=== PATIENT | male | born 1950 | race Caucasian/White ===

== ENCOUNTER 2020-04-01 23:06 | Inpatient (IN) | payer MEDICARE, MEDICAID ==
[~2020-04-01] VITALS: Ht 167.6 cm; Wt 75.0 kg
[2020-04-01] MEDS ORDERED: SODIUM CHLORIDE 0.9% 1,000ML IVBOLUS ONE (23:30)
[2020-04-01] MEDS ORDERED: SODIUM CHLORIDE FLUSH 10ML SYR IVF ONE (23:30)
[2020-04-01] MEDS ORDERED: ONDANSETRON 2MG/ML, 2ML IVPush ONE (23:30)
[2020-04-01] MEDS ORDERED: SIMV20TA19 PO (23:40)
[2020-04-01] MEDS ORDERED: MULT-658 PO (23:40)
[2020-04-01] MEDS ORDERED: TIOT18CA INH (23:40)
[2020-04-01] MEDS ORDERED: LOSA25TA25 PO (23:40)
[2020-04-01] MEDS ORDERED: TAMS-11 PO (23:40)
[2020-04-01] MEDS ORDERED: ASCO500T8 PO (23:40)
[2020-04-01] MEDS ORDERED: GLIM2TAB7 PO (23:40)
[2020-04-01] MEDS ORDERED: CETI10TA18 PO (23:40)
[2020-04-01] MEDS ORDERED: CHOL10003 PO (23:40)
--- NOTE | 2020-04-01 23:40 | NUR ---
BIB [facility] CC OF WEAKNESS FOR A FEW DAYS, UNKNOWN LENGTH, AND INCREASING O2 NEEDS. PT UNSURE OF HOW MANY LITERS HE IS ON FOR BASELINE, EMS UNSURE WELL. PAPERWORK FROM [facility] STATES PT IS ON 2L AT NOC. PT ON 5L NC HERE SATURATION 94%. PT IS BLIND IN BOTH EYES AND USUALLY GETS AROUND IN WHEELCHAIR.
--- NOTE | 2020-04-01 23:43 | NUR ---
PER EMS REPORT, PT REQUESTS TO BE DNR.
--- NOTE | 2020-04-01 23:43 | NUR ---
MED REC AND ALLERGIES DONE AND VERIFIED
[2020-04-01 23:57] LABS: BASOPHILS % (AUTO) 1 % (0-1); EOSINOPHILS % (AUTO) 0 % (1-7); LYMPHOCYTES % (AUTO) 10 % (22-44); MEAN CORPUSCULAR HEMOGLOBIN 31.7 pg (27.5-34.5); MEAN PLATELET VOLUME 8.9 fL (7.4-10.4); MONOCYTES % (AUTO) 10 % (2-9); NEUTROPHILS % (AUTO) 79 % (42-75); PLATELET COUNT 212 x10^3/uL (130-400); RED BLOOD COUNT 4.42 x10^6/uL (4.38-5.82); RED CELL DISTRIBUTION WIDTH 13.6 % (9.4-14.8)
[2020-04-02] LABS: MD NO
[2020-04-02 00:06] LABS: ALANINE AMINOTRANSFERASE 32 U/L (12-78); ALBUMIN 3.2 g/dL (3.4-5.0); ANION GAP 4 mmol/L (5-15); CALCIUM 8.1 mg/dL (8.5-10.1); CHLORIDE 106 mmol/L (98-107); CREATININE 1.19 mg/dL (0.7-1.3)
[2020-04-02 00:10] LABS: ALKALINE PHOSPHATASE 105 U/L (45-117); BILIRUBIN,TOTAL 0.3 mg/dL (0.2-1.0); TOTAL PROTEIN 7.7 g/dL (6.4-8.2); TROPONIN I < 0.015 ng/mL (0.000-0.045)
[2020-04-02] MEDS ORDERED: AZITHROMYCIN 500 MG in SODIUM CHLORIDE 0.9% 250 ML IVPB ONE (00:30)
[2020-04-02] MEDS ORDERED: CEFTRIAXONE PMX 1GM/50ML 50 ML IVPB ONE (00:30)
--- NOTE | 2020-04-02 00:50 | NUR ---
[facility] AT BEDSIDE
[2020-04-02 00:59] LABS: MICROSCOPIC INDICATED
[2020-04-02] MEDS ORDERED: CEFTRIAXONE PMX 1GM/50ML 50 ML ONE (01:04)
--- NOTE | 2020-04-02 01:18 | NUR ---
PT RESTING, NO COMPLAINTS AT THIS TIME
[2020-04-02] MEDS ORDERED: ONDANSETRON 2MG/ML, 2ML IVPush PRN (01:30)
[2020-04-02] MEDS ORDERED: ENOXAPARIN 40 MG/0.4 ML SQ SCH (01:30)
[2020-04-02] MEDS ORDERED: ENALAPRILAT 1.25 MG/ML, 2ML IVPush PRN (01:30)
[2020-04-02] MEDS: CEFTRIAXONE PMX 1GM/50ML 50 ML IV SCH (02:12)
--- NOTE | 2020-04-02 02:25 | NUR ---
report given to Svetlana ROSE
[2020-04-02 02:56] VITALS: BP 99/57
[2020-04-02] MEDS ORDERED: ENOXAPARIN 60 MG/0.6 ML ONE (05:11)
[2020-04-02] MEDS: ENOXAPARIN 60 MG/0.6 ML SQ SCH (05:17)
[2020-04-02 07:07] VITALS: BP 112/67
[2020-04-02] MEDS: THIAMINE 100MG TABLET PO SCH (08:04)
[2020-04-02] MEDS: ACETAMINOPHEN 325 MG TABLET PO PRN (08:04)
[2020-04-02] MEDS: CHOLECALCIFEROL 5,000u TAB PO SCH (08:04)
[2020-04-02] MEDS: ZINC SULFATE 220 MG CAPSULE PO SCH (08:04)
[2020-04-02] MEDS: DEXAMETHASONE 4 MG/ML, 1ML IVPush SCH (08:05)
[2020-04-02] MEDS: ASCORBIC ACID 500 MG TABLET PO SCH ×2 (08:05→17:18)
[2020-04-02] MEDS: DOXYCYCLINE 100MG TABLET PO SCH ×2 (08:05→20:51)
[2020-04-02 13:05] VITALS: BP 106/67
[2020-04-02 20:19] VITALS: BP 120/73
[2020-04-02] MEDS: MELATONIN 5 MG TABLET PO SCH (20:51)
[2020-04-03 00:10] VITALS: BP 120/70
[2020-04-03] MEDS: CEFTRIAXONE PMX 1GM/50ML 50 ML IV SCH (01:49)
[2020-04-03 06:11] LABS: BASOPHILS % (AUTO) 0 % (0-1); EOSINOPHILS % (AUTO) 0 % (1-7); LYMPHOCYTES % (AUTO) 15 % (22-44); MEAN CORPUSCULAR HEMOGLOBIN 31.5 pg (27.5-34.5); MEAN PLATELET VOLUME 9.4 fL (7.4-10.4); MONOCYTES % (AUTO) 7 % (2-9); NEUTROPHILS % (AUTO) 78 % (42-75); PLATELET COUNT 206 x10^3/uL (130-400); RED BLOOD COUNT 4.32 x10^6/uL (4.38-5.82); RED CELL DISTRIBUTION WIDTH 13.9 % (9.4-14.8)
[2020-04-03] MEDS: ENOXAPARIN 60 MG/0.6 ML SQ SCH (06:13)
[2020-04-03 06:23] LABS: MD NO
[2020-04-03 06:25] LABS: ANION GAP 6 mmol/L (5-15); CALCIUM 8.2 mg/dL (8.5-10.1); CHLORIDE 108 mmol/L (98-107); CREATININE 1.12 mg/dL (0.7-1.3)
[2020-04-03 08:14] VITALS: BP 103/63
[2020-04-03] MEDS: ZINC SULFATE 220 MG CAPSULE PO SCH (09:40)
[2020-04-03] MEDS: CHOLECALCIFEROL 5,000u TAB PO SCH (09:40)
[2020-04-03] MEDS: DOXYCYCLINE 100MG TABLET PO SCH ×2 (09:40→21:03)
[2020-04-03] MEDS: DEXAMETHASONE 4 MG/ML, 1ML IVPush SCH (09:40)
[2020-04-03] MEDS: ASCORBIC ACID 500 MG TABLET PO SCH ×2 (09:41→17:42)
[2020-04-03] MEDS: THIAMINE 100MG TABLET PO SCH (09:41)
[2020-04-03 14:00] VITALS: BP 121/72
[2020-04-03] MEDS ORDERED: PHARMACY INSTRUCTION MC PRN (18:00)
[2020-04-03] MEDS ORDERED: REMDESIVIR 100 MG in SODIUM CHLORIDE 0.9% 250 ML IVPB SCH (18:30)
[2020-04-03] MEDS ORDERED: REMDESIVIR 200 MG in SODIUM CHLORIDE 0.9% 250 ML IVPB ONE (18:30)
[2020-04-03 19:12] VITALS: BP 116/70
[2020-04-03] MEDS: MELATONIN 5 MG TABLET PO SCH (21:03)
[2020-04-04 00:59] VITALS: BP 105/60
[2020-04-04] MEDS: CEFTRIAXONE PMX 1GM/50ML 50 ML IV SCH (01:35)
[2020-04-04] MEDS: ENOXAPARIN 40 MG/0.4 ML SQ SCH (05:53)
[2020-04-04 06:33] VITALS: BP 126/68
[2020-04-04 06:52] LABS: BASOPHILS % (AUTO) 0 % (0-1); EOSINOPHILS % (AUTO) 0 % (1-7); LYMPHOCYTES % (AUTO) 12 % (22-44); MEAN CORPUSCULAR HEMOGLOBIN 31.6 pg (27.5-34.5); MONOCYTES % (AUTO) 6 % (2-9); NEUTROPHILS % (AUTO) 82 % (42-75); PLATELET COUNT 209 x10^3/uL (130-400); RED BLOOD COUNT 4.32 x10^6/uL (4.38-5.82); RED CELL DISTRIBUTION WIDTH 13.8 % (9.4-14.8)
[2020-04-04 06:54] LABS: MD NO
[2020-04-04 06:58] LABS: ANION GAP 9 mmol/L (5-15); CALCIUM 8.9 mg/dL (8.5-10.1); CHLORIDE 111 mmol/L (98-107); CREATININE 1.22 mg/dL (0.7-1.3)
[2020-04-04] MEDS: CHOLECALCIFEROL 5,000u TAB PO SCH (09:20)
[2020-04-04] MEDS: DOXYCYCLINE 100MG TABLET PO SCH ×2 (09:20→20:47)
[2020-04-04] MEDS: ZINC SULFATE 220 MG CAPSULE PO SCH (09:20)
[2020-04-04] MEDS: THIAMINE 100MG TABLET PO SCH (09:20)
[2020-04-04] MEDS: DEXAMETHASONE 4 MG/ML, 1ML IVPush SCH (09:21)
[2020-04-04] MEDS: ASCORBIC ACID 500 MG TABLET PO SCH ×2 (09:21→18:08)
[2020-04-04 09:55] LABS: ALANINE AMINOTRANSFERASE 31 U/L (12-78)
[2020-04-04 09:57] LABS: ALKALINE PHOSPHATASE 88 U/L (45-117); BILIRUBIN,TOTAL 0.3 mg/dL (0.2-1.0); TOTAL PROTEIN 7.8 g/dL (6.4-8.2)
[2020-04-04] MEDS ORDERED: DEXTROSE 4 GM TAB.CHEW PO PRN (12:00)
[2020-04-04] MEDS ORDERED: GLUCAGON 1 MG IM PRN (12:00)
[2020-04-04] MEDS ORDERED: DEXTROSE 50%, 50ML SYRINGE IVPush PRN (12:00)
[2020-04-04 12:01] VITALS: BP 124/70
[2020-04-04] MEDS: INSULIN LISPRO 100 UNITS/ML, PEN SQ-INSULIN SCH ×2 (18:11→20:41)
[2020-04-04 19:28] VITALS: BP 119/82
[2020-04-04] MEDS ORDERED: INSULIN LISPRO 100 UNITS/ML, PEN SQ-INSULIN ONE (20:30)
[2020-04-04] MEDS: INSULIN GLARGINE 100 UNITS/ML, PEN SQ-INSULIN SCH (20:40)
[2020-04-04] MEDS: REMDESIVIR 100 MG in SODIUM CHLORIDE 0.9% 250 ML IVPB SCH (20:41)
[2020-04-04] MEDS: SODIUM CHLORIDE FLUSH 10ML SYR IVF SCH (20:43)
[2020-04-04] MEDS: MELATONIN 5 MG TABLET PO SCH (20:47)
[2020-04-04] MEDS ORDERED: INSULIN GLARGINE 100 UNITS/ML, PEN SQ-INSULIN SCH (21:00)
[2020-04-05] MEDS: CEFTRIAXONE PMX 1GM/50ML 50 ML IV SCH (00:47)
[2020-04-05 00:51] VITALS: BP 124/78
[2020-04-05 02:47] VITALS: BP 113/64
[2020-04-05 06:51] LABS: ALBUMIN 2.7 g/dL (3.4-5.0); ANION GAP 8 mmol/L (5-15); CHLORIDE 111 mmol/L (98-107)
[2020-04-05 06:57] LABS: ALANINE AMINOTRANSFERASE 32 U/L (12-78); ALKALINE PHOSPHATASE 84 U/L (45-117); BILIRUBIN,TOTAL 0.3 mg/dL (0.2-1.0); CREATININE 1.24 mg/dL (0.7-1.3); TOTAL PROTEIN 7.6 g/dL (6.4-8.2)
[2020-04-05] MEDS: ASCORBIC ACID 500 MG TABLET PO SCH ×2 (07:52→16:04)
[2020-04-05] MEDS: INSULIN LISPRO 100 UNITS/ML, PEN SQ-INSULIN SCH ×4 (07:52→20:23)
[2020-04-05] MEDS: ZINC SULFATE 220 MG CAPSULE PO SCH (07:52)
[2020-04-05] MEDS: DOXYCYCLINE 100MG TABLET PO SCH ×2 (07:52→20:22)
[2020-04-05] MEDS: THIAMINE 100MG TABLET PO SCH (07:52)
[2020-04-05] MEDS: CHOLECALCIFEROL 5,000u TAB PO SCH (07:53)
[2020-04-05] MEDS: INSULIN GLARGINE 100 UNITS/ML, PEN SQ-INSULIN SCH ×2 (07:53→20:22)
[2020-04-05] MEDS: DEXAMETHASONE 4 MG/ML, 1ML IVPush SCH (07:54)
[2020-04-05] MEDS: ENOXAPARIN 40 MG/0.4 ML SQ SCH (07:54)
[2020-04-05] MEDS: SODIUM CHLORIDE FLUSH 10ML SYR IVF SCH ×2 (07:54→20:23)
[2020-04-05 08:08] VITALS: BP 130/74
[2020-04-05 14:11] VITALS: BP 111/66
[2020-04-05 19:08] VITALS: BP 133/75
[2020-04-05] MEDS: REMDESIVIR 100 MG in SODIUM CHLORIDE 0.9% 250 ML IVPB SCH (20:21)
[2020-04-05] MEDS: MELATONIN 5 MG TABLET PO SCH (20:22)
[2020-04-06] MEDS: CEFTRIAXONE PMX 1GM/50ML 50 ML IV SCH (01:14)
[2020-04-06 01:22] VITALS: BP 124/68
[2020-04-06 05:51] LABS: BASOPHILS % (AUTO) 0 % (0-1); EOSINOPHILS % (AUTO) 0 % (1-7); LYMPHOCYTES % (AUTO) 17 % (22-44); MEAN CORPUSCULAR HEMOGLOBIN 31.5 pg (27.5-34.5); MEAN CORPUSCULAR HGB CONC 33.9 g/dL (33.2-36.2); MEAN PLATELET VOLUME 9.1 fL (7.4-10.4); MONOCYTES % (AUTO) 9 % (2-9); NEUTROPHILS % (AUTO) 74 % (42-75); PLATELET COUNT 233 x10^3/uL (130-400); RED CELL DISTRIBUTION WIDTH 13.9 % (9.4-14.8)
[2020-04-06 06:05] LABS: ALBUMIN 2.7 g/dL (3.4-5.0); ANION GAP 8 mmol/L (5-15); CALCIUM 8.7 mg/dL (8.5-10.1); CHLORIDE 108 mmol/L (98-107)
[2020-04-06 06:08] LABS: ALANINE AMINOTRANSFERASE 35 U/L (12-78); ALKALINE PHOSPHATASE 85 U/L (45-117); BILIRUBIN,TOTAL 0.4 mg/dL (0.2-1.0); CREATININE 1.07 mg/dL (0.7-1.3); TOTAL PROTEIN 7.5 g/dL (6.4-8.2)
[2020-04-06 06:18] LABS: MD NO
[2020-04-06] MEDS ORDERED: FUROSEMIDE 40 MG/4 ML IV ONE (06:30)
[2020-04-06 08:16] VITALS: BP 130/72
[2020-04-06] MEDS: DOXYCYCLINE 100MG TABLET PO SCH ×2 (09:11→20:50)
[2020-04-06] MEDS: ZINC SULFATE 220 MG CAPSULE PO SCH (09:11)
[2020-04-06] MEDS: ASCORBIC ACID 500 MG TABLET PO SCH ×2 (09:11→16:40)
[2020-04-06] MEDS: THIAMINE 100MG TABLET PO SCH (09:11)
[2020-04-06] MEDS: CHOLECALCIFEROL 5,000u TAB PO SCH (09:11)
[2020-04-06] MEDS: DEXAMETHASONE 4 MG/ML, 1ML IVPush SCH (09:12)
[2020-04-06] MEDS: ACETAMINOPHEN 325 MG TABLET PO PRN (09:18)
[2020-04-06] MEDS: SODIUM CHLORIDE FLUSH 10ML SYR IVF SCH ×2 (09:19→20:50)
[2020-04-06] MEDS: INSULIN LISPRO 100 UNITS/ML, PEN SQ-INSULIN SCH ×4 (09:19→20:51)
[2020-04-06] MEDS: ENOXAPARIN 40 MG/0.4 ML SQ SCH (09:19)
[2020-04-06] MEDS: INSULIN GLARGINE 100 UNITS/ML, PEN SQ-INSULIN SCH ×2 (09:20→20:50)
[2020-04-06 12:10] VITALS: BP 135/74
[2020-04-06] MEDS: MELATONIN 5 MG TABLET PO SCH (20:50)
[2020-04-06] MEDS: REMDESIVIR 100 MG in SODIUM CHLORIDE 0.9% 250 ML IVPB SCH (20:50)
[2020-04-06 21:08] VITALS: BP 128/75
[2020-04-07] MEDS: CEFTRIAXONE PMX 1GM/50ML 50 ML IV SCH (00:41)
[2020-04-07 00:50] VITALS: BP 131/73
[2020-04-07 06:01] LABS: BASOPHILS % (AUTO) 0 % (0-1); EOSINOPHILS % (AUTO) 0 % (1-7); LYMPHOCYTES % (AUTO) 20 % (22-44); MEAN CORPUSCULAR HEMOGLOBIN 31.9 pg (27.5-34.5); MEAN CORPUSCULAR HGB CONC 34.6 g/dL (33.2-36.2); MEAN PLATELET VOLUME 9.5 fL (7.4-10.4); MONOCYTES % (AUTO) 13 % (2-9); NEUTROPHILS % (AUTO) 67 % (42-75); PLATELET COUNT 268 x10^3/uL (130-400); RED BLOOD COUNT 4.67 x10^6/uL (4.38-5.82); RED CELL DISTRIBUTION WIDTH 13.8 % (9.4-14.8)
[2020-04-07 06:08] LABS: ALANINE AMINOTRANSFERASE 36 U/L (12-78); ALBUMIN 2.7 g/dL (3.4-5.0); ANION GAP 8 mmol/L (5-15); CALCIUM 8.7 mg/dL (8.5-10.1); CHLORIDE 107 mmol/L (98-107); CREATININE 1.02 mg/dL (0.7-1.3)
[2020-04-07 06:10] LABS: ALKALINE PHOSPHATASE 92 U/L (45-117); BILIRUBIN,TOTAL 0.4 mg/dL (0.2-1.0); TOTAL PROTEIN 7.6 g/dL (6.4-8.2)
[2020-04-07 06:43] LABS: MD SCAN
[2020-04-07 08:25] VITALS: BP 116/73
[2020-04-07] MEDS: CHOLECALCIFEROL 5,000u TAB PO SCH (08:37)
[2020-04-07] MEDS: THIAMINE 100MG TABLET PO SCH (08:37)
[2020-04-07] MEDS: DOXYCYCLINE 100MG TABLET PO SCH ×2 (08:37→20:24)
[2020-04-07] MEDS: ASCORBIC ACID 500 MG TABLET PO SCH ×2 (08:37→16:09)
[2020-04-07] MEDS: ZINC SULFATE 220 MG CAPSULE PO SCH (08:37)
[2020-04-07] MEDS: DEXAMETHASONE 4 MG/ML, 1ML IVPush SCH (08:38)
[2020-04-07] MEDS: FUROSEMIDE 40 MG/4 ML IV SCH (08:38)
[2020-04-07] MEDS: ENOXAPARIN 40 MG/0.4 ML SQ SCH (08:38)
[2020-04-07] MEDS: INSULIN GLARGINE 100 UNITS/ML, PEN SQ-INSULIN SCH ×2 (08:39→20:23)
[2020-04-07] MEDS: INSULIN LISPRO 100 UNITS/ML, PEN SQ-INSULIN SCH ×4 (08:39→20:24)
[2020-04-07] MEDS: SODIUM CHLORIDE FLUSH 10ML SYR IVF SCH ×2 (08:40→20:24)
[2020-04-07 12:39] VITALS: BP 156/78
[2020-04-07] MEDS: REMDESIVIR 100 MG in SODIUM CHLORIDE 0.9% 250 ML IVPB SCH (20:24)
[2020-04-07] MEDS: MELATONIN 5 MG TABLET PO SCH (20:24)
[2020-04-07 20:31] VITALS: BP 138/70
[2020-04-08] MEDS: CEFTRIAXONE PMX 1GM/50ML 50 ML IV SCH (01:38)
[2020-04-08 01:57] VITALS: BP 133/73
[2020-04-08 06:28] LABS: ALBUMIN 2.6 g/dL (3.4-5.0); ANION GAP 7 mmol/L (5-15); CALCIUM 8.8 mg/dL (8.5-10.1); CHLORIDE 108 mmol/L (98-107)
[2020-04-08 06:29] LABS: BASOPHILS % (AUTO) 0 % (0-1); EOSINOPHILS % (AUTO) 0 % (1-7); LYMPHOCYTES % (AUTO) 18 % (22-44); MEAN CORPUSCULAR HEMOGLOBIN 31.6 pg (27.5-34.5); MEAN CORPUSCULAR HGB CONC 34.1 g/dL (33.2-36.2); MEAN PLATELET VOLUME 9.4 fL (7.4-10.4); MONOCYTES % (AUTO) 12 % (2-9); NEUTROPHILS % (AUTO) 70 % (42-75); PLATELET COUNT 294 x10^3/uL (130-400); RED BLOOD COUNT 4.81 x10^6/uL (4.38-5.82); RED CELL DISTRIBUTION WIDTH 13.7 % (9.4-14.8)
[2020-04-08 06:32] LABS: ALANINE AMINOTRANSFERASE 37 U/L (12-78); ALKALINE PHOSPHATASE 93 U/L (45-117); BILIRUBIN,TOTAL 0.4 mg/dL (0.2-1.0); CREATININE 0.98 mg/dL (0.7-1.3); MD NO; TOTAL PROTEIN 7.5 g/dL (6.4-8.2)
[2020-04-08 07:17] VITALS: BP 146/80
[2020-04-08] MEDS: INSULIN GLARGINE 100 UNITS/ML, PEN SQ-INSULIN SCH ×2 (08:06→21:38)
[2020-04-08] MEDS: INSULIN LISPRO 100 UNITS/ML, PEN SQ-INSULIN SCH ×5 (08:06→21:39)
[2020-04-08] MEDS: DOXYCYCLINE 100MG TABLET PO SCH ×2 (08:07→21:34)
[2020-04-08] MEDS: DEXAMETHASONE 4 MG/ML, 1ML IVPush SCH (08:07)
[2020-04-08] MEDS: ZINC SULFATE 220 MG CAPSULE PO SCH (08:07)
[2020-04-08] MEDS: THIAMINE 100MG TABLET PO SCH (08:07)
[2020-04-08] MEDS: ENOXAPARIN 40 MG/0.4 ML SQ SCH (08:07)
[2020-04-08] MEDS: FUROSEMIDE 40 MG/4 ML IV SCH (08:07)
[2020-04-08] MEDS: CHOLECALCIFEROL 5,000u TAB PO SCH (08:07)
[2020-04-08] MEDS: ASCORBIC ACID 500 MG TABLET PO SCH ×2 (08:07→16:41)
[2020-04-08] MEDS: SODIUM CHLORIDE FLUSH 10ML SYR IVF SCH ×2 (08:08→21:39)
[2020-04-08 12:51] VITALS: BP 134/79
[2020-04-08 18:34] VITALS: BP 126/73
[2020-04-08] MEDS: MELATONIN 5 MG TABLET PO SCH (21:34)
[2020-04-09] MEDS: CEFTRIAXONE PMX 1GM/50ML 50 ML IV SCH (01:34)
[2020-04-09 01:36] VITALS: BP 116/75
[2020-04-09 07:28] VITALS: BP 122/84
[2020-04-09] MEDS: ENOXAPARIN 40 MG/0.4 ML SQ SCH (08:00)
[2020-04-09] MEDS: DOXYCYCLINE 100MG TABLET PO SCH ×2 (08:45→20:53)
[2020-04-09] MEDS: DEXAMETHASONE 4 MG/ML, 1ML IVPush SCH (08:46)
[2020-04-09] MEDS: FUROSEMIDE 40 MG/4 ML IV SCH (08:46)
[2020-04-09] MEDS: ASCORBIC ACID 500 MG TABLET PO SCH ×2 (08:47→16:10)
[2020-04-09] MEDS: INSULIN LISPRO 100 UNITS/ML, PEN SQ-INSULIN SCH ×4 (08:47→20:55)
[2020-04-09] MEDS: SODIUM CHLORIDE FLUSH 10ML SYR IVF SCH ×2 (08:48→20:54)
[2020-04-09] MEDS: ZINC SULFATE 220 MG CAPSULE PO SCH (08:48)
[2020-04-09] MEDS: CHOLECALCIFEROL 5,000u TAB PO SCH (08:48)
[2020-04-09] MEDS: THIAMINE 100MG TABLET PO SCH (08:48)
[2020-04-09] MEDS: INSULIN GLARGINE 100 UNITS/ML, PEN SQ-INSULIN SCH ×2 (08:48→20:56)
[2020-04-09 09:52] LABS: BASOPHILS % (AUTO) 1 % (0-1); EOSINOPHILS % (AUTO) 0 % (1-7); LYMPHOCYTES % (AUTO) 15 % (22-44); MEAN CORPUSCULAR HEMOGLOBIN 31.8 pg (27.5-34.5); MEAN PLATELET VOLUME 9.3 fL (7.4-10.4); MONOCYTES % (AUTO) 7 % (2-9); NEUTROPHILS % (AUTO) 77 % (42-75); PLATELET COUNT 385 x10^3/uL (130-400); RED BLOOD COUNT 4.99 x10^6/uL (4.38-5.82); RED CELL DISTRIBUTION WIDTH 13.9 % (9.4-14.8)
[2020-04-09 10:02] LABS: ANION GAP 8 mmol/L (5-15); CALCIUM 9.7 mg/dL (8.5-10.1); CHLORIDE 108 mmol/L (98-107)
[2020-04-09 10:03] LABS: CREATININE 1.23 mg/dL (0.7-1.3)
[2020-04-09 10:38] LABS: MD SCAN
[2020-04-09 13:21] VITALS: BP 107/67
[2020-04-09 19:43] VITALS: BP 116/65
[2020-04-09] MEDS: MELATONIN 5 MG TABLET PO SCH (20:54)
[2020-04-10] MEDS: CEFTRIAXONE PMX 1GM/50ML 50 ML IV SCH (01:27)
[2020-04-10 01:30] VITALS: BP 101/60
[2020-04-10 05:34] LABS: BASOPHILS % (AUTO) 1 % (0-1); EOSINOPHILS % (AUTO) 1 % (1-7); LYMPHOCYTES % (AUTO) 15 % (22-44); MEAN CORPUSCULAR HEMOGLOBIN 31.6 pg (27.5-34.5); MEAN PLATELET VOLUME 9.2 fL (7.4-10.4); MONOCYTES % (AUTO) 6 % (2-9); NEUTROPHILS % (AUTO) 78 % (42-75); PLATELET COUNT 365 x10^3/uL (130-400); RED BLOOD COUNT 4.64 x10^6/uL (4.38-5.82); RED CELL DISTRIBUTION WIDTH 13.8 % (9.4-14.8)
[2020-04-10 05:46] LABS: ANION GAP 8 mmol/L (5-15); CALCIUM 8.8 mg/dL (8.5-10.1); CHLORIDE 107 mmol/L (98-107)
[2020-04-10 05:47] LABS: CREATININE 1.04 mg/dL (0.7-1.3)
[2020-04-10 05:48] LABS: D-DIMER 0.31 ug/mlFEU (0.00-0.52)
[2020-04-10 06:04] LABS: MD SCAN
[2020-04-10 07:45] VITALS: BP 95/51
[2020-04-10] MEDS: DEXAMETHASONE 4 MG/ML, 1ML IVPush SCH (10:17)
[2020-04-10] MEDS: CHOLECALCIFEROL 5,000u TAB PO SCH (10:18)
[2020-04-10] MEDS: FUROSEMIDE 40 MG/4 ML IV SCH (10:18)
[2020-04-10] MEDS: ZINC SULFATE 220 MG CAPSULE PO SCH (10:18)
[2020-04-10] MEDS: ASCORBIC ACID 500 MG TABLET PO SCH ×2 (10:18→17:31)
[2020-04-10] MEDS: DOXYCYCLINE 100MG TABLET PO SCH ×2 (10:18→21:08)
[2020-04-10] MEDS: THIAMINE 100MG TABLET PO SCH (10:18)
[2020-04-10] MEDS: INSULIN LISPRO 100 UNITS/ML, PEN SQ-INSULIN SCH ×4 (10:19→21:14)
[2020-04-10] MEDS: INSULIN GLARGINE 100 UNITS/ML, PEN SQ-INSULIN SCH ×2 (10:21→21:13)
[2020-04-10] MEDS: SODIUM CHLORIDE FLUSH 10ML SYR IVF SCH ×2 (10:25→21:08)
[2020-04-10] MEDS: ENOXAPARIN 40 MG/0.4 ML SQ SCH (10:39)
[2020-04-10 13:46] VITALS: BP 108/65
[2020-04-10 20:30] VITALS: BP 108/56
[2020-04-10] MEDS: MELATONIN 5 MG TABLET PO SCH (21:08)
[2020-04-11] MEDS: CEFTRIAXONE PMX 1GM/50ML 50 ML IV SCH (01:26)
[2020-04-11 01:30] VITALS: BP 102/58
[2020-04-11] MEDS: SODIUM CHLORIDE FLUSH 10ML SYR IVF SCH ×2 (07:38→21:30)
[2020-04-11] MEDS: INSULIN LISPRO 100 UNITS/ML, PEN SQ-INSULIN SCH ×4 (08:26→21:29)
[2020-04-11] MEDS: INSULIN GLARGINE 100 UNITS/ML, PEN SQ-INSULIN SCH ×2 (08:28→21:29)
[2020-04-11] MEDS: THIAMINE 100MG TABLET PO SCH (08:29)
[2020-04-11] MEDS: ASCORBIC ACID 500 MG TABLET PO SCH ×2 (08:29→16:48)
[2020-04-11] MEDS: FUROSEMIDE 40 MG/4 ML IV SCH (08:29)
[2020-04-11] MEDS: DEXAMETHASONE 4 MG/ML, 1ML IVPush SCH (08:29)
[2020-04-11] MEDS: CHOLECALCIFEROL 5,000u TAB PO SCH (08:30)
[2020-04-11] MEDS: ENOXAPARIN 40 MG/0.4 ML SQ SCH (08:30)
[2020-04-11] MEDS: DOXYCYCLINE 100MG TABLET PO SCH ×2 (08:30→21:29)
[2020-04-11] MEDS: ZINC SULFATE 220 MG CAPSULE PO SCH (08:30)
[2020-04-11 08:34] VITALS: BP 132/72
[2020-04-11 14:43] VITALS: BP 126/68
[2020-04-11 18:53] VITALS: BP 117/67
[2020-04-11] MEDS: MELATONIN 5 MG TABLET PO SCH (21:29)
[2020-04-12 00:38] VITALS: BP 116/66
[2020-04-12] MEDS: CEFTRIAXONE PMX 1GM/50ML 50 ML IV SCH (01:28)
[2020-04-12 06:55] VITALS: BP 119/72
[2020-04-12] MEDS: INSULIN LISPRO 100 UNITS/ML, PEN SQ-INSULIN SCH ×4 (07:00→21:39)
[2020-04-12] MEDS: SODIUM CHLORIDE FLUSH 10ML SYR IVF SCH ×2 (07:14→21:39)
[2020-04-12] MEDS ORDERED: DEXAMETHASONE 4 MG/ML, 5ML ONE (07:39)
[2020-04-12] MEDS: THIAMINE 100MG TABLET PO SCH (07:49)
[2020-04-12] MEDS: ASCORBIC ACID 500 MG TABLET PO SCH ×2 (07:49→16:28)
[2020-04-12] MEDS: ZINC SULFATE 220 MG CAPSULE PO SCH (07:50)
[2020-04-12] MEDS: FUROSEMIDE 40 MG/4 ML IV SCH (07:50)
[2020-04-12] MEDS: DEXAMETHASONE 4 MG/ML, 1ML IVPush SCH (07:50)
[2020-04-12] MEDS: DOXYCYCLINE 100MG TABLET PO SCH (07:51)
[2020-04-12] MEDS: CHOLECALCIFEROL 5,000u TAB PO SCH (07:51)
[2020-04-12] MEDS: ENOXAPARIN 40 MG/0.4 ML SQ SCH (07:51)
[2020-04-12] MEDS: INSULIN GLARGINE 100 UNITS/ML, PEN SQ-INSULIN SCH ×2 (07:51→21:39)
[2020-04-12 12:52] VITALS: BP 106/64
[2020-04-12 19:50] VITALS: BP 109/68
[2020-04-12] MEDS: MELATONIN 5 MG TABLET PO SCH (21:39)
[2020-04-13 01:34] VITALS: BP 111/72
[2020-04-13] MEDS: INSULIN LISPRO 100 UNITS/ML, PEN SQ-INSULIN SCH ×4 (07:00→20:45)
[2020-04-13 07:50] VITALS: BP 120/71
[2020-04-13] MEDS: INSULIN GLARGINE 100 UNITS/ML, PEN SQ-INSULIN SCH ×2 (08:04→20:46)
[2020-04-13] MEDS: ASCORBIC ACID 500 MG TABLET PO SCH ×2 (10:08→17:15)
[2020-04-13] MEDS: ENOXAPARIN 40 MG/0.4 ML SQ SCH (10:10)
[2020-04-13] MEDS: SODIUM CHLORIDE FLUSH 10ML SYR IVF SCH ×2 (10:11→20:46)
[2020-04-13] MEDS: ZINC SULFATE 220 MG CAPSULE PO SCH (10:11)
[2020-04-13] MEDS: CHOLECALCIFEROL 5,000u TAB PO SCH (10:11)
[2020-04-13] MEDS: THIAMINE 100MG TABLET PO SCH (10:11)
[2020-04-13] MEDS: FUROSEMIDE 40 MG/4 ML IV SCH (10:11)
[2020-04-13] MEDS: DEXAMETHASONE 4 MG/ML, 1ML IVPush SCH (10:11)
[2020-04-13 13:44] VITALS: BP 101/57
[2020-04-13 18:32] VITALS: BP 107/57
[2020-04-13] MEDS: MELATONIN 5 MG TABLET PO SCH (20:44)
[2020-04-14 01:09] VITALS: BP 121/69
[2020-04-14 06:34] LABS: CREATININE 1.06 mg/dL (0.7-1.3)
[2020-04-14] MEDS: INSULIN LISPRO 100 UNITS/ML, PEN SQ-INSULIN SCH ×4 (07:00→19:50)
[2020-04-14 07:30] VITALS: BP 127/74
[2020-04-14] MEDS: ZINC SULFATE 220 MG CAPSULE PO SCH (08:42)
[2020-04-14] MEDS: THIAMINE 100MG TABLET PO SCH (08:42)
[2020-04-14] MEDS: CHOLECALCIFEROL 5,000u TAB PO SCH (08:42)
[2020-04-14] MEDS: FUROSEMIDE 40 MG/4 ML IV SCH (08:42)
[2020-04-14] MEDS: ASCORBIC ACID 500 MG TABLET PO SCH ×2 (08:42→16:45)
[2020-04-14] MEDS: DEXAMETHASONE 4 MG/ML, 1ML IVPush SCH (08:42)
[2020-04-14] MEDS: SODIUM CHLORIDE FLUSH 10ML SYR IVF SCH ×2 (08:43→22:46)
[2020-04-14] MEDS: INSULIN GLARGINE 100 UNITS/ML, PEN SQ-INSULIN SCH ×2 (08:43→19:51)
[2020-04-14] MEDS: ENOXAPARIN 40 MG/0.4 ML SQ SCH (08:43)
[2020-04-14 13:52] VITALS: BP 116/69
[2020-04-14 18:21] VITALS: BP 118/63
[2020-04-14] MEDS: MELATONIN 5 MG TABLET PO SCH (22:45)
[2020-04-15 00:50] VITALS: BP 134/71
[2020-04-15] MEDS: INSULIN LISPRO 100 UNITS/ML, PEN SQ-INSULIN SCH ×4 (07:00→22:06)
[2020-04-15] MEDS: ENOXAPARIN 40 MG/0.4 ML SQ SCH (08:00)
[2020-04-15 08:07] VITALS: BP 137/80
[2020-04-15] MEDS: FUROSEMIDE 40 MG/4 ML IV SCH (09:02)
[2020-04-15] MEDS: DEXAMETHASONE 4 MG/ML, 1ML IVPush SCH (09:02)
[2020-04-15] MEDS: ASCORBIC ACID 500 MG TABLET PO SCH ×2 (09:02→16:28)
[2020-04-15] MEDS: THIAMINE 100MG TABLET PO SCH (09:02)
[2020-04-15] MEDS: ZINC SULFATE 220 MG CAPSULE PO SCH (09:02)
[2020-04-15] MEDS: CHOLECALCIFEROL 5,000u TAB PO SCH (09:02)
[2020-04-15] MEDS: SODIUM CHLORIDE FLUSH 10ML SYR IVF SCH ×2 (09:03→21:00)
[2020-04-15] MEDS: INSULIN GLARGINE 100 UNITS/ML, PEN SQ-INSULIN SCH ×2 (09:04→22:06)
[2020-04-15 12:39] VITALS: BP 128/67
[2020-04-15 19:29] VITALS: BP 129/72
[2020-04-15] MEDS: MELATONIN 5 MG TABLET PO SCH (22:05)
[2020-04-16 02:55] VITALS: BP 124/73
[2020-04-16] MEDS: INSULIN LISPRO 100 UNITS/ML, PEN SQ-INSULIN SCH ×4 (07:00→20:46)
[2020-04-16 07:25] VITALS: BP 125/78
[2020-04-16] MEDS: THIAMINE 100MG TABLET PO SCH (07:50)
[2020-04-16] MEDS: ZINC SULFATE 220 MG CAPSULE PO SCH (07:50)
[2020-04-16] MEDS: ASCORBIC ACID 500 MG TABLET PO SCH ×2 (07:50→16:42)
[2020-04-16] MEDS: CHOLECALCIFEROL 5,000u TAB PO SCH (07:51)
[2020-04-16] MEDS: ENOXAPARIN 40 MG/0.4 ML SQ SCH (07:51)
[2020-04-16] MEDS: FUROSEMIDE 40 MG/4 ML IV SCH (07:51)
[2020-04-16] MEDS: DEXAMETHASONE 4 MG/ML, 1ML IVPush SCH (07:51)
[2020-04-16] MEDS: SODIUM CHLORIDE FLUSH 10ML SYR IVF SCH ×2 (07:51→20:47)
[2020-04-16] MEDS: INSULIN GLARGINE 100 UNITS/ML, PEN SQ-INSULIN SCH ×2 (07:52→20:47)
[2020-04-16 12:48] VITALS: BP 115/71
[2020-04-16 19:12] VITALS: BP 113/66
[2020-04-16] MEDS: MELATONIN 5 MG TABLET PO SCH (20:46)
[2020-04-17 03:11] VITALS: BP 119/66
[2020-04-17 06:58] VITALS: BP 110/70
[2020-04-17] MEDS: INSULIN LISPRO 100 UNITS/ML, PEN SQ-INSULIN SCH ×4 (07:00→21:08)
[2020-04-17] MEDS: ENOXAPARIN 40 MG/0.4 ML SQ SCH (08:00)
[2020-04-17] MEDS: ZINC SULFATE 220 MG CAPSULE PO SCH (08:01)
[2020-04-17] MEDS: DEXAMETHASONE 4 MG/ML, 1ML IVPush SCH (08:01)
[2020-04-17] MEDS: THIAMINE 100MG TABLET PO SCH (08:01)
[2020-04-17] MEDS: ASCORBIC ACID 500 MG TABLET PO SCH ×2 (08:01→15:57)
[2020-04-17] MEDS: CHOLECALCIFEROL 5,000u TAB PO SCH (08:01)
[2020-04-17] MEDS: FUROSEMIDE 40 MG/4 ML IV SCH (08:01)
[2020-04-17] MEDS: INSULIN GLARGINE 100 UNITS/ML, PEN SQ-INSULIN SCH ×2 (08:04→21:07)
[2020-04-17] MEDS: SODIUM CHLORIDE FLUSH 10ML SYR IVF SCH ×2 (08:12→21:07)
[2020-04-17 12:09] VITALS: BP 136/79
[2020-04-17 20:44] VITALS: BP 128/78
[2020-04-17] MEDS: MELATONIN 5 MG TABLET PO SCH (21:07)
[2020-04-18 01:34] VITALS: BP 119/56
[2020-04-18] MEDS: INSULIN LISPRO 100 UNITS/ML, PEN SQ-INSULIN SCH ×4 (07:00→20:48)
[2020-04-18 07:17] VITALS: BP 109/66
[2020-04-18] MEDS: CHOLECALCIFEROL 5,000u TAB PO SCH (07:50)
[2020-04-18] MEDS: ASCORBIC ACID 500 MG TABLET PO SCH ×2 (07:50→16:08)
[2020-04-18] MEDS: ZINC SULFATE 220 MG CAPSULE PO SCH (07:50)
[2020-04-18] MEDS: THIAMINE 100MG TABLET PO SCH (07:50)
[2020-04-18] MEDS: DEXAMETHASONE 4 MG/ML, 1ML IVPush SCH (07:51)
[2020-04-18] MEDS: ENOXAPARIN 40 MG/0.4 ML SQ SCH (07:51)
[2020-04-18] MEDS: FUROSEMIDE 40 MG/4 ML IV SCH (07:51)
[2020-04-18] MEDS: SODIUM CHLORIDE FLUSH 10ML SYR IVF SCH ×2 (07:51→20:48)
[2020-04-18] MEDS: INSULIN GLARGINE 100 UNITS/ML, PEN SQ-INSULIN SCH ×2 (07:52→20:48)
[2020-04-18 13:47] VITALS: BP 126/71
[2020-04-18] MEDS: AMPICILLIN/SULBACTAM 3 GM in SODIUM CHLORIDE 0.9% 100 ML IV SCH ×2 (18:00→23:36)
[2020-04-18] MEDS: MELATONIN 5 MG TABLET PO SCH (20:47)
[2020-04-18 21:01] VITALS: BP 131/80
[2020-04-19 00:10] VITALS: BP 107/69
[2020-04-19 03:04] VITALS: BP 110/70
[2020-04-19 03:43] LABS: BASOPHILS % (AUTO) 1 % (0-1); EOSINOPHILS % (AUTO) 1 % (1-7); LYMPHOCYTES % (AUTO) 18 % (22-44); MEAN CORPUSCULAR HEMOGLOBIN 31.3 pg (27.5-34.5); MEAN PLATELET VOLUME 9.4 fL (7.4-10.4); MONOCYTES % (AUTO) 10 % (2-9); NEUTROPHILS % (AUTO) 71 % (42-75); PLATELET COUNT 351 x10^3/uL (130-400); RED BLOOD COUNT 4.59 x10^6/uL (4.38-5.82); RED CELL DISTRIBUTION WIDTH 13.9 % (9.4-14.8)
[2020-04-19 03:47] LABS: MD NO
[2020-04-19 03:54] LABS: ALBUMIN 2.6 g/dL (3.4-5.0); ANION GAP 2 mmol/L (5-15); CALCIUM 8.7 mg/dL (8.5-10.1); CHLORIDE 109 mmol/L (98-107)
[2020-04-19 03:59] LABS: ALANINE AMINOTRANSFERASE 35 U/L (12-78); ALKALINE PHOSPHATASE 76 U/L (45-117); BILIRUBIN,TOTAL 0.8 mg/dL (0.2-1.0); TOTAL PROTEIN 6.8 g/dL (6.4-8.2)
[2020-04-19] MEDS: AMPICILLIN/SULBACTAM 3 GM in SODIUM CHLORIDE 0.9% 100 ML IV SCH ×3 (05:46→18:04)
[2020-04-19] MEDS: INSULIN LISPRO 100 UNITS/ML, PEN SQ-INSULIN SCH ×4 (07:00→21:17)
[2020-04-19 07:37] VITALS: BP 129/74
[2020-04-19] MEDS: INSULIN GLARGINE 100 UNITS/ML, PEN SQ-INSULIN SCH ×2 (09:00→21:16)
[2020-04-19] MEDS: CHOLECALCIFEROL 5,000u TAB PO SCH (09:48)
[2020-04-19] MEDS: ZINC SULFATE 220 MG CAPSULE PO SCH (09:48)
[2020-04-19] MEDS: FLUTICASONE/VILANTEROL 100-25MCG/INH INH SCH (09:48)
[2020-04-19] MEDS: THIAMINE 100MG TABLET PO SCH (09:48)
[2020-04-19] MEDS: ENOXAPARIN 40 MG/0.4 ML SQ SCH (09:49)
[2020-04-19] MEDS: FUROSEMIDE 40 MG/4 ML IV SCH (09:49)
[2020-04-19] MEDS: ASCORBIC ACID 500 MG TABLET PO SCH ×2 (09:49→18:04)
[2020-04-19] MEDS: SODIUM CHLORIDE FLUSH 10ML SYR IVF SCH ×2 (09:50→21:16)
[2020-04-19] MEDS: DEXAMETHASONE 4 MG/ML, 1ML IVPush SCH (09:50)
[2020-04-19 13:50] VITALS: BP 117/72
[2020-04-19 20:49] VITALS: BP 119/69
[2020-04-19] MEDS: MELATONIN 5 MG TABLET PO SCH (21:16)
[2020-04-20] MEDS: AMPICILLIN/SULBACTAM 3 GM in SODIUM CHLORIDE 0.9% 100 ML IV SCH ×4 (00:12→17:44)
[2020-04-20 01:22] VITALS: BP 135/72
[2020-04-20] MEDS: INSULIN LISPRO 100 UNITS/ML, PEN SQ-INSULIN SCH ×4 (07:00→20:24)
[2020-04-20 07:57] VITALS: BP 129/69
[2020-04-20] MEDS: ZINC SULFATE 220 MG CAPSULE PO SCH (08:48)
[2020-04-20] MEDS: ASCORBIC ACID 500 MG TABLET PO SCH ×2 (08:49→16:02)
[2020-04-20] MEDS: DEXAMETHASONE 4 MG/ML, 1ML IVPush SCH (08:49)
[2020-04-20] MEDS: THIAMINE 100MG TABLET PO SCH (08:49)
[2020-04-20] MEDS: CHOLECALCIFEROL 5,000u TAB PO SCH (08:49)
[2020-04-20] MEDS: SODIUM CHLORIDE FLUSH 10ML SYR IVF SCH ×2 (08:49→20:25)
[2020-04-20] MEDS: INSULIN GLARGINE 100 UNITS/ML, PEN SQ-INSULIN SCH ×2 (08:50→20:25)
[2020-04-20] MEDS: FUROSEMIDE 40 MG/4 ML IV SCH (08:50)
[2020-04-20] MEDS: ENOXAPARIN 40 MG/0.4 ML SQ SCH (08:51)
[2020-04-20] MEDS: FLUTICASONE/VILANTEROL 100-25MCG/INH INH SCH (09:06)
[2020-04-20 13:44] VITALS: BP 112/65
[2020-04-20 19:28] VITALS: BP 121/66
[2020-04-20] MEDS: MELATONIN 5 MG TABLET PO SCH (20:25)
[2020-04-21] MEDS: AMPICILLIN/SULBACTAM 3 GM in SODIUM CHLORIDE 0.9% 100 ML IV SCH ×4 (00:02→17:12)
[2020-04-21 01:15] VITALS: BP 130/74
[2020-04-21] MEDS: INSULIN LISPRO 100 UNITS/ML, PEN SQ-INSULIN SCH ×4 (07:00→21:10)
[2020-04-21 07:43] VITALS: BP 125/69
[2020-04-21] MEDS: FUROSEMIDE 40 MG/4 ML IV SCH (08:39)
[2020-04-21] MEDS: SODIUM CHLORIDE FLUSH 10ML SYR IVF SCH ×2 (08:39→21:07)
[2020-04-21] MEDS: DEXAMETHASONE 4 MG/ML, 1ML IVPush SCH (08:39)
[2020-04-21] MEDS: FLUTICASONE/VILANTEROL 100-25MCG/INH INH SCH (08:40)
[2020-04-21] MEDS: THIAMINE 100MG TABLET PO SCH (08:40)
[2020-04-21] MEDS: CHOLECALCIFEROL 5,000u TAB PO SCH (08:40)
[2020-04-21] MEDS: ZINC SULFATE 220 MG CAPSULE PO SCH (08:40)
[2020-04-21] MEDS: ASCORBIC ACID 500 MG TABLET PO SCH ×2 (08:40→17:12)
[2020-04-21] MEDS: ENOXAPARIN 40 MG/0.4 ML SQ SCH (08:40)
[2020-04-21] MEDS: INSULIN GLARGINE 100 UNITS/ML, PEN SQ-INSULIN SCH ×2 (08:41→21:10)
[2020-04-21 14:01] VITALS: BP 117/70
[2020-04-21 21:04] VITALS: BP 130/66
[2020-04-21] MEDS: MELATONIN 5 MG TABLET PO SCH (21:07)
[2020-04-22] MEDS: AMPICILLIN/SULBACTAM 3 GM in SODIUM CHLORIDE 0.9% 100 ML IV SCH ×4 (00:07→18:08)
[2020-04-22 00:08] VITALS: BP 119/71
[2020-04-22] MEDS: INSULIN LISPRO 100 UNITS/ML, PEN SQ-INSULIN SCH ×4 (07:00→20:39)
[2020-04-22 07:45] VITALS: BP 127/69
[2020-04-22] MEDS: ENOXAPARIN 40 MG/0.4 ML SQ SCH (08:00)
[2020-04-22] MEDS: THIAMINE 100MG TABLET PO SCH (08:31)
[2020-04-22] MEDS: DEXAMETHASONE 4 MG/ML, 1ML IVPush SCH (08:31)
[2020-04-22] MEDS: ZINC SULFATE 220 MG CAPSULE PO SCH (08:31)
[2020-04-22] MEDS: CHOLECALCIFEROL 5,000u TAB PO SCH (08:31)
[2020-04-22] MEDS: FUROSEMIDE 40 MG/4 ML IV SCH (08:31)
[2020-04-22] MEDS: ASCORBIC ACID 500 MG TABLET PO SCH ×2 (08:31→16:44)
[2020-04-22] MEDS: FLUTICASONE/VILANTEROL 100-25MCG/INH INH SCH (08:32)
[2020-04-22] MEDS: SODIUM CHLORIDE FLUSH 10ML SYR IVF SCH ×2 (08:33→20:40)
[2020-04-22] MEDS: INSULIN GLARGINE 100 UNITS/ML, PEN SQ-INSULIN SCH ×2 (09:50→20:40)
[2020-04-22 12:36] VITALS: BP 122/66
[2020-04-22] MEDS: MELATONIN 5 MG TABLET PO SCH (20:40)
[2020-04-22] MEDS: MAGNESIUM HYDROXIDE 8%, 30ML UDC PO SCH (20:40)
[2020-04-22 20:43] VITALS: BP 143/71
[2020-04-23] MEDS: AMPICILLIN/SULBACTAM 3 GM in SODIUM CHLORIDE 0.9% 100 ML IV SCH ×5 (00:12→23:47)
[2020-04-23 00:13] VITALS: BP 137/76
[2020-04-23 04:07] LABS: CREATININE 0.96 mg/dL (0.7-1.3)
[2020-04-23] MEDS: INSULIN LISPRO 100 UNITS/ML, PEN SQ-INSULIN SCH ×4 (07:00→21:11)
[2020-04-23 07:56] VITALS: BP 123/71
[2020-04-23] MEDS: ENOXAPARIN 40 MG/0.4 ML SQ SCH (08:00)
[2020-04-23] MEDS: MAGNESIUM HYDROXIDE 8%, 30ML UDC PO SCH ×2 (08:01→21:06)
[2020-04-23] MEDS: ASCORBIC ACID 500 MG TABLET PO SCH ×2 (08:02→16:35)
[2020-04-23] MEDS: DEXAMETHASONE 4 MG/ML, 1ML IVPush SCH (08:02)
[2020-04-23] MEDS: FUROSEMIDE 40 MG/4 ML IV SCH (08:02)
[2020-04-23] MEDS: ZINC SULFATE 220 MG CAPSULE PO SCH (08:02)
[2020-04-23] MEDS: THIAMINE 100MG TABLET PO SCH (08:02)
[2020-04-23] MEDS: SODIUM CHLORIDE FLUSH 10ML SYR IVF SCH ×2 (08:03→21:00)
[2020-04-23] MEDS: FLUTICASONE/VILANTEROL 100-25MCG/INH INH SCH (08:03)
[2020-04-23] MEDS: CHOLECALCIFEROL 5,000u TAB PO SCH (08:04)
[2020-04-23] MEDS: INSULIN GLARGINE 100 UNITS/ML, PEN SQ-INSULIN SCH ×2 (09:00→21:12)
[2020-04-23 12:18] VITALS: BP 118/70
[2020-04-23 19:13] VITALS: BP 108/69
[2020-04-23] MEDS: MELATONIN 5 MG TABLET PO SCH (21:07)
[2020-04-24 00:23] VITALS: BP 112/74
[2020-04-24 03:58] LABS: BASOPHILS % (AUTO) 0 % (0-1); EOSINOPHILS % (AUTO) 1 % (1-7); LYMPHOCYTES % (AUTO) 31 % (22-44); MEAN CORPUSCULAR HEMOGLOBIN 31.3 pg (27.5-34.5); MEAN CORPUSCULAR HGB CONC 33.1 g/dL (33.2-36.2); MEAN PLATELET VOLUME 9.1 fL (7.4-10.4); MONOCYTES % (AUTO) 9 % (2-9); NEUTROPHILS % (AUTO) 59 % (42-75); PLATELET COUNT 316 x10^3/uL (130-400); RED BLOOD COUNT 4.37 x10^6/uL (4.38-5.82)
[2020-04-24 04:06] LABS: MD NO
[2020-04-24 04:11] LABS: CHLORIDE 106 mmol/L (98-107)
[2020-04-24 04:18] LABS: ALBUMIN 2.6 g/dL (3.4-5.0); ANION GAP 3 mmol/L (5-15); CALCIUM 8.8 mg/dL (8.5-10.1); CREATININE 0.93 mg/dL (0.7-1.3)
[2020-04-24] MEDS: AMPICILLIN/SULBACTAM 3 GM in SODIUM CHLORIDE 0.9% 100 ML IV SCH ×4 (06:06→22:21)
[2020-04-24] MEDS: INSULIN LISPRO 100 UNITS/ML, PEN SQ-INSULIN SCH ×4 (07:00→21:00)
[2020-04-24] MEDS: THIAMINE 100MG TABLET PO SCH (07:48)
[2020-04-24] MEDS: FUROSEMIDE 40 MG/4 ML IV SCH (07:48)
[2020-04-24] MEDS: ZINC SULFATE 220 MG CAPSULE PO SCH (07:48)
[2020-04-24] MEDS: MAGNESIUM HYDROXIDE 8%, 30ML UDC PO SCH ×2 (07:48→22:24)
[2020-04-24] MEDS: ASCORBIC ACID 500 MG TABLET PO SCH ×2 (07:49→16:49)
[2020-04-24] MEDS: CHOLECALCIFEROL 5,000u TAB PO SCH (07:49)
[2020-04-24] MEDS: FLUTICASONE/VILANTEROL 100-25MCG/INH INH SCH (07:49)
[2020-04-24] MEDS: DEXAMETHASONE 4 MG/ML, 1ML IVPush SCH (07:49)
[2020-04-24] MEDS: ENOXAPARIN 40 MG/0.4 ML SQ SCH (07:50)
[2020-04-24] MEDS: SODIUM CHLORIDE FLUSH 10ML SYR IVF SCH ×2 (07:51→22:25)
[2020-04-24 07:56] VITALS: BP 114/67
[2020-04-24] MEDS: INSULIN GLARGINE 100 UNITS/ML, PEN SQ-INSULIN SCH ×2 (09:00→22:24)
[2020-04-24 12:36] VITALS: BP 117/69
[2020-04-24 18:59] VITALS: BP 112/68
[2020-04-24] MEDS: MELATONIN 5 MG TABLET PO SCH (22:24)
[2020-04-25 01:59] VITALS: BP 120/72
[2020-04-25] MEDS: AMPICILLIN/SULBACTAM 3 GM in SODIUM CHLORIDE 0.9% 100 ML IV SCH ×4 (05:12→23:06)
[2020-04-25] MEDS: INSULIN LISPRO 100 UNITS/ML, PEN SQ-INSULIN SCH ×4 (07:00→21:03)
[2020-04-25 07:56] VITALS: BP 115/67
[2020-04-25] MEDS: MAGNESIUM HYDROXIDE 8%, 30ML UDC PO SCH ×2 (08:55→21:04)
[2020-04-25] MEDS: SODIUM CHLORIDE FLUSH 10ML SYR IVF SCH ×2 (08:56→21:04)
[2020-04-25] MEDS: ASCORBIC ACID 500 MG TABLET PO SCH ×2 (08:56→17:00)
[2020-04-25] MEDS: FLUTICASONE/VILANTEROL 100-25MCG/INH INH SCH (08:56)
[2020-04-25] MEDS: DEXAMETHASONE 4 MG/ML, 1ML IVPush SCH (08:56)
[2020-04-25] MEDS: ENOXAPARIN 40 MG/0.4 ML SQ SCH (08:56)
[2020-04-25] MEDS: FUROSEMIDE 40 MG/4 ML IV SCH (08:56)
[2020-04-25] MEDS: THIAMINE 100MG TABLET PO SCH (08:57)
[2020-04-25] MEDS: ZINC SULFATE 220 MG CAPSULE PO SCH (08:57)
[2020-04-25] MEDS: CHOLECALCIFEROL 5,000u TAB PO SCH (08:57)
[2020-04-25] MEDS: INSULIN GLARGINE 100 UNITS/ML, PEN SQ-INSULIN SCH ×2 (08:58→21:04)
[2020-04-25 13:35] VITALS: BP 123/67
[2020-04-25 19:44] VITALS: BP 131/73
[2020-04-25] MEDS: MELATONIN 5 MG TABLET PO SCH (21:04)
[2020-04-26 00:25] VITALS: BP 115/68
[2020-04-26] MEDS: AMPICILLIN/SULBACTAM 3 GM in SODIUM CHLORIDE 0.9% 100 ML IV SCH ×4 (05:14→23:14)
[2020-04-26] MEDS: INSULIN LISPRO 100 UNITS/ML, PEN SQ-INSULIN SCH ×4 (07:00→21:59)
[2020-04-26 07:16] LABS: CREATININE 1.01 mg/dL (0.7-1.3)
[2020-04-26 09:40] VITALS: BP 107/64
[2020-04-26] MEDS: ENOXAPARIN 40 MG/0.4 ML SQ SCH (10:00)
[2020-04-26] MEDS: ZINC SULFATE 220 MG CAPSULE PO SCH (10:01)
[2020-04-26] MEDS: FUROSEMIDE 40 MG/4 ML IV SCH (10:01)
[2020-04-26] MEDS: SODIUM CHLORIDE FLUSH 10ML SYR IVF SCH ×2 (10:01→20:57)
[2020-04-26] MEDS: ASCORBIC ACID 500 MG TABLET PO SCH ×2 (10:01→17:25)
[2020-04-26] MEDS: THIAMINE 100MG TABLET PO SCH (10:01)
[2020-04-26] MEDS: DEXAMETHASONE 4 MG/ML, 1ML IVPush SCH (10:01)
[2020-04-26] MEDS: MAGNESIUM HYDROXIDE 8%, 30ML UDC PO SCH ×2 (10:01→20:57)
[2020-04-26] MEDS: FLUTICASONE/VILANTEROL 100-25MCG/INH INH SCH (10:02)
[2020-04-26] MEDS: CHOLECALCIFEROL 5,000u TAB PO SCH (10:02)
[2020-04-26] MEDS: INSULIN GLARGINE 100 UNITS/ML, PEN SQ-INSULIN SCH ×2 (10:03→21:59)
[2020-04-26 15:36] VITALS: BP 123/72
[2020-04-26 18:46] VITALS: BP 112/64
[2020-04-26] MEDS: MELATONIN 5 MG TABLET PO SCH (20:57)
[2020-04-27 00:30] VITALS: BP 114/64
[2020-04-27] MEDS: AMPICILLIN/SULBACTAM 3 GM in SODIUM CHLORIDE 0.9% 100 ML IV SCH ×4 (05:10→23:07)
[2020-04-27] MEDS: INSULIN LISPRO 100 UNITS/ML, PEN SQ-INSULIN SCH ×4 (07:00→21:36)
[2020-04-27] MEDS: ASCORBIC ACID 500 MG TABLET PO SCH ×2 (07:43→17:09)
[2020-04-27] MEDS: THIAMINE 100MG TABLET PO SCH (07:43)
[2020-04-27] MEDS: DEXAMETHASONE 4 MG/ML, 1ML IVPush SCH (07:44)
[2020-04-27] MEDS: SODIUM CHLORIDE FLUSH 10ML SYR IVF SCH ×2 (07:44→21:35)
[2020-04-27] MEDS: FLUTICASONE/VILANTEROL 100-25MCG/INH INH SCH (07:45)
[2020-04-27] MEDS: FUROSEMIDE 40 MG/4 ML IV SCH (07:45)
[2020-04-27] MEDS: CHOLECALCIFEROL 5,000u TAB PO SCH (07:46)
[2020-04-27] MEDS: MAGNESIUM HYDROXIDE 8%, 30ML UDC PO SCH ×2 (07:46→21:35)
[2020-04-27] MEDS: ENOXAPARIN 40 MG/0.4 ML SQ SCH (07:46)
[2020-04-27] MEDS: ZINC SULFATE 220 MG CAPSULE PO SCH (07:47)
[2020-04-27] MEDS: INSULIN GLARGINE 100 UNITS/ML, PEN SQ-INSULIN SCH ×2 (07:47→21:36)
[2020-04-27 07:53] VITALS: BP 121/67
[2020-04-27 13:58] VITALS: BP 131/54
[2020-04-27 19:32] VITALS: BP 111/72
[2020-04-27] MEDS: MELATONIN 5 MG TABLET PO SCH (21:35)
[2020-04-28 01:10] VITALS: BP 120/82
[2020-04-28 05:08] LABS: BASOPHILS % (AUTO) 1 % (0-1); EOSINOPHILS % (AUTO) 1 % (1-7); LYMPHOCYTES % (AUTO) 23 % (22-44); MEAN CORPUSCULAR HEMOGLOBIN 31.6 pg (27.5-34.5); MEAN CORPUSCULAR HGB CONC 33.3 g/dL (33.2-36.2); MONOCYTES % (AUTO) 7 % (2-9); NEUTROPHILS % (AUTO) 69 % (42-75); PLATELET COUNT 234 x10^3/uL (130-400); RED BLOOD COUNT 4.07 x10^6/uL (4.38-5.82); RED CELL DISTRIBUTION WIDTH 14.2 % (9.4-14.8)
[2020-04-28] MEDS: AMPICILLIN/SULBACTAM 3 GM in SODIUM CHLORIDE 0.9% 100 ML IV SCH ×2 (05:14→11:14)
[2020-04-28 05:17] LABS: ALBUMIN 2.6 g/dL (3.4-5.0); ANION GAP 4 mmol/L (5-15); CALCIUM 9.1 mg/dL (8.5-10.1); CHLORIDE 109 mmol/L (98-107)
[2020-04-28 05:18] LABS: CREATININE 0.95 mg/dL (0.7-1.3)
[2020-04-28 05:21] LABS: MD NO
[2020-04-28] MEDS: INSULIN LISPRO 100 UNITS/ML, PEN SQ-INSULIN SCH ×4 (07:00→20:24)
[2020-04-28 07:53] VITALS: BP 121/66
[2020-04-28] MEDS: FUROSEMIDE 40 MG/4 ML IV SCH (10:56)
[2020-04-28] MEDS: THIAMINE 100MG TABLET PO SCH (10:57)
[2020-04-28] MEDS: ZINC SULFATE 220 MG CAPSULE PO SCH (10:57)
[2020-04-28] MEDS: methylPREDNISolone SOD SUCC 125 MG/2 ML IV SCH ×3 (10:57→20:23)
[2020-04-28] MEDS: INSULIN GLARGINE 100 UNITS/ML, PEN SQ-INSULIN SCH ×2 (10:58→20:24)
[2020-04-28] MEDS: POTASSIUM CHLORIDE 20 MEQ TAB.ER.PRT PO SCH ×2 (10:58→17:28)
[2020-04-28] MEDS: ASCORBIC ACID 500 MG TABLET PO SCH ×2 (10:58→17:28)
[2020-04-28] MEDS: CHOLECALCIFEROL 5,000u TAB PO SCH (10:58)
[2020-04-28] MEDS: SODIUM CHLORIDE FLUSH 10ML SYR IVF SCH ×2 (10:59→21:00)
[2020-04-28] MEDS: MAGNESIUM HYDROXIDE 8%, 30ML UDC PO SCH ×2 (10:59→20:23)
[2020-04-28] MEDS: FLUTICASONE/VILANTEROL 100-25MCG/INH INH SCH (10:59)
[2020-04-28] MEDS: ENOXAPARIN 40 MG/0.4 ML SQ SCH (11:15)
[2020-04-28 12:45] VITALS: BP 114/66
[2020-04-28 18:33] VITALS: BP 130/65
[2020-04-28] MEDS: MELATONIN 5 MG TABLET PO SCH (20:23)
[2020-04-29 01:05] VITALS: BP 122/66
[2020-04-29] MEDS: methylPREDNISolone SOD SUCC 125 MG/2 ML IV SCH ×4 (01:11→18:44)
[2020-04-29 06:49] LABS: CREATININE 0.99 mg/dL (0.7-1.3)
[2020-04-29] MEDS: INSULIN LISPRO 100 UNITS/ML, PEN SQ-INSULIN SCH ×4 (07:27→20:25)
[2020-04-29 09:00] VITALS: BP 137/69
[2020-04-29] MEDS: THIAMINE 100MG TABLET PO SCH (10:14)
[2020-04-29] MEDS: ZINC SULFATE 220 MG CAPSULE PO SCH (10:14)
[2020-04-29] MEDS: ASCORBIC ACID 500 MG TABLET PO SCH ×2 (10:14→16:18)
[2020-04-29] MEDS: POTASSIUM CHLORIDE 20 MEQ TAB.ER.PRT PO SCH ×2 (10:14→16:18)
[2020-04-29] MEDS: FUROSEMIDE 40 MG/4 ML IV SCH (10:14)
[2020-04-29] MEDS: CHOLECALCIFEROL 5,000u TAB PO SCH (10:15)
[2020-04-29] MEDS: INSULIN GLARGINE 100 UNITS/ML, PEN SQ-INSULIN SCH ×2 (10:17→20:25)
[2020-04-29] MEDS: FLUTICASONE/VILANTEROL 100-25MCG/INH INH SCH (10:18)
[2020-04-29] MEDS: SODIUM CHLORIDE FLUSH 10ML SYR IVF SCH ×2 (10:19→20:25)
[2020-04-29] MEDS: MAGNESIUM HYDROXIDE 8%, 30ML UDC PO SCH ×2 (10:30→20:18)
[2020-04-29] MEDS: ENOXAPARIN 40 MG/0.4 ML SQ SCH (10:40)
[2020-04-29 14:16] VITALS: BP 113/59
[2020-04-29] MEDS: MELATONIN 5 MG TABLET PO SCH (20:24)
[2020-04-29 20:31] VITALS: BP 136/73
[2020-04-30 00:56] VITALS: BP 125/69
[2020-04-30] MEDS: methylPREDNISolone SOD SUCC 125 MG/2 ML IV SCH ×4 (01:44→18:25)
[2020-04-30] MEDS: INSULIN LISPRO 100 UNITS/ML, PEN SQ-INSULIN SCH ×4 (07:27→20:32)
[2020-04-30] MEDS: POTASSIUM CHLORIDE 20 MEQ TAB.ER.PRT PO SCH ×2 (07:39→16:15)
[2020-04-30] MEDS: ASCORBIC ACID 500 MG TABLET PO SCH ×2 (07:39→16:15)
[2020-04-30 08:05] VITALS: BP 117/56
[2020-04-30] MEDS: CHOLECALCIFEROL 5,000u TAB PO SCH (09:34)
[2020-04-30] MEDS: FUROSEMIDE 40 MG/4 ML IV SCH (09:34)
[2020-04-30] MEDS: ZINC SULFATE 220 MG CAPSULE PO SCH (09:34)
[2020-04-30] MEDS: THIAMINE 100MG TABLET PO SCH (09:34)
[2020-04-30] MEDS: MAGNESIUM HYDROXIDE 8%, 30ML UDC PO SCH ×2 (09:34→20:18)
[2020-04-30] MEDS: INSULIN GLARGINE 100 UNITS/ML, PEN SQ-INSULIN SCH ×2 (09:36→20:32)
[2020-04-30] MEDS: SODIUM CHLORIDE FLUSH 10ML SYR IVF SCH ×2 (09:37→20:18)
[2020-04-30] MEDS: FLUTICASONE/VILANTEROL 100-25MCG/INH INH SCH (09:37)
[2020-04-30] MEDS: ENOXAPARIN 40 MG/0.4 ML SQ SCH (11:48)
[2020-04-30 15:04] VITALS: BP 116/66
[2020-04-30] MEDS: MELATONIN 5 MG TABLET PO SCH (20:18)
[2020-04-30 20:33] VITALS: BP 152/62
[2020-05-01 00:10] VITALS: BP 130/73
[2020-05-01] MEDS: methylPREDNISolone SOD SUCC 125 MG/2 ML IV SCH ×3 (00:10→11:39)
[2020-05-01 07:41] VITALS: BP 129/64
[2020-05-01] MEDS: MAGNESIUM HYDROXIDE 8%, 30ML UDC PO SCH ×3 (08:24→20:09)
[2020-05-01] MEDS: INSULIN GLARGINE 100 UNITS/ML, PEN SQ-INSULIN SCH ×2 (08:24→20:15)
[2020-05-01] MEDS: INSULIN LISPRO 100 UNITS/ML, PEN SQ-INSULIN SCH ×4 (08:24→20:14)
[2020-05-01] MEDS: FLUTICASONE/VILANTEROL 100-25MCG/INH INH SCH (08:25)
[2020-05-01] MEDS: ASCORBIC ACID 500 MG TABLET PO SCH ×2 (08:25→16:26)
[2020-05-01] MEDS: THIAMINE 100MG TABLET PO SCH (08:25)
[2020-05-01] MEDS: CHOLECALCIFEROL 5,000u TAB PO SCH (08:25)
[2020-05-01] MEDS: ZINC SULFATE 220 MG CAPSULE PO SCH (08:25)
[2020-05-01] MEDS: FUROSEMIDE 40 MG/4 ML IV SCH (08:25)
[2020-05-01] MEDS: SODIUM CHLORIDE FLUSH 10ML SYR IVF SCH ×2 (08:26→20:02)
[2020-05-01] MEDS: ENOXAPARIN 40 MG/0.4 ML SQ SCH (11:00)
[2020-05-01 13:05] VITALS: BP 127/67
[2020-05-01] MEDS ORDERED: INSULIN LISPRO 100 UNIT/ML, 3ML VIAL SQ-INSULIN ONE (13:30)
[2020-05-01 18:43] VITALS: BP 124/64
[2020-05-01] MEDS: MELATONIN 5 MG TABLET PO SCH (20:01)
[2020-05-02 00:41] VITALS: BP 117/59
[2020-05-02] MEDS: INSULIN LISPRO 100 UNITS/ML, PEN SQ-INSULIN SCH ×4 (07:00→21:23)
[2020-05-02] MEDS: ASCORBIC ACID 500 MG TABLET PO SCH ×2 (07:54→16:14)
[2020-05-02] MEDS: MAGNESIUM HYDROXIDE 8%, 30ML UDC PO SCH ×2 (07:54→21:00)
[2020-05-02] MEDS: FUROSEMIDE 40 MG/4 ML IV SCH (07:55)
[2020-05-02] MEDS: THIAMINE 100MG TABLET PO SCH (07:55)
[2020-05-02] MEDS: CHOLECALCIFEROL 5,000u TAB PO SCH (07:55)
[2020-05-02] MEDS: ZINC SULFATE 220 MG CAPSULE PO SCH (07:55)
[2020-05-02] MEDS: SODIUM CHLORIDE FLUSH 10ML SYR IVF SCH ×2 (07:55→21:09)
[2020-05-02] MEDS: FLUTICASONE/VILANTEROL 100-25MCG/INH INH SCH (07:56)
[2020-05-02] MEDS: INSULIN GLARGINE 100 UNITS/ML, PEN SQ-INSULIN SCH ×2 (07:57→21:29)
[2020-05-02 07:58] VITALS: BP 137/71
[2020-05-02] MEDS: ENOXAPARIN 40 MG/0.4 ML SQ SCH (10:59)
[2020-05-02 13:32] VITALS: BP 107/63
[2020-05-02 20:20] VITALS: BP 114/68
[2020-05-02] MEDS: MELATONIN 5 MG TABLET PO SCH (21:09)
[2020-05-03 01:27] VITALS: BP 112/66
[2020-05-03 06:59] VITALS: BP 122/73
[2020-05-03] MEDS: INSULIN LISPRO 100 UNITS/ML, PEN SQ-INSULIN SCH ×4 (07:00→21:32)
[2020-05-03] MEDS: SODIUM CHLORIDE FLUSH 10ML SYR IVF SCH ×2 (09:00→21:29)
[2020-05-03] MEDS: INSULIN GLARGINE 100 UNITS/ML, PEN SQ-INSULIN SCH ×3 (09:00→21:33)
[2020-05-03] MEDS: ASCORBIC ACID 500 MG TABLET PO SCH ×2 (09:16→18:06)
[2020-05-03] MEDS: ZINC SULFATE 220 MG CAPSULE PO SCH (09:16)
[2020-05-03] MEDS: CHOLECALCIFEROL 5,000u TAB PO SCH (09:16)
[2020-05-03] MEDS: MAGNESIUM HYDROXIDE 8%, 30ML UDC PO SCH ×2 (09:16→21:23)
[2020-05-03] MEDS: THIAMINE 100MG TABLET PO SCH (09:16)
[2020-05-03] MEDS: FUROSEMIDE 40 MG/4 ML IV SCH (09:16)
[2020-05-03] MEDS: FLUTICASONE/VILANTEROL 100-25MCG/INH INH SCH (09:17)
[2020-05-03 12:48] VITALS: BP 112/69
[2020-05-03] MEDS: ENOXAPARIN 40 MG/0.4 ML SQ SCH (12:51)
[2020-05-03 20:42] VITALS: BP 104/66
[2020-05-03] MEDS: MELATONIN 5 MG TABLET PO SCH (21:23)
[2020-05-04 02:14] VITALS: BP 109/67
[2020-05-04 07:07] VITALS: BP 110/66
[2020-05-04] MEDS: INSULIN LISPRO 100 UNITS/ML, PEN SQ-INSULIN SCH ×4 (07:20→20:15)
[2020-05-04] MEDS: ASCORBIC ACID 500 MG TABLET PO SCH ×2 (07:35→16:09)
[2020-05-04 09:14] LABS: HCT (SEDRATE) 43.3 % (39.2-51.8)
[2020-05-04 09:23] LABS: ALANINE AMINOTRANSFERASE 52 U/L (12-78); ALBUMIN 2.6 g/dL (3.4-5.0); ANION GAP 5 mmol/L (5-15); CALCIUM 8.5 mg/dL (8.5-10.1); CHLORIDE 106 mmol/L (98-107); CREATININE 1.06 mg/dL (0.7-1.3)
[2020-05-04 09:25] LABS: ALKALINE PHOSPHATASE 77 U/L (45-117); BILIRUBIN,TOTAL 0.5 mg/dL (0.2-1.0); TOTAL PROTEIN 6.4 g/dL (6.4-8.2)
[2020-05-04] MEDS: FLUTICASONE/VILANTEROL 100-25MCG/INH INH SCH (09:35)
[2020-05-04] MEDS: SODIUM CHLORIDE FLUSH 10ML SYR IVF SCH ×2 (09:36→20:08)
[2020-05-04] MEDS: ZINC SULFATE 220 MG CAPSULE PO SCH (09:37)
[2020-05-04] MEDS: THIAMINE 100MG TABLET PO SCH (09:37)
[2020-05-04] MEDS: CHOLECALCIFEROL 5,000u TAB PO SCH (09:37)
[2020-05-04] MEDS: MAGNESIUM HYDROXIDE 8%, 30ML UDC PO SCH ×2 (09:38→20:07)
[2020-05-04] MEDS: INSULIN GLARGINE 100 UNITS/ML, PEN SQ-INSULIN SCH ×2 (09:41→20:15)
[2020-05-04 09:42] LABS: BASOPHILS % (AUTO) 1 % (0-1); EOSINOPHILS % (AUTO) 1 % (1-7); LYMPHOCYTES % (AUTO) 15 % (22-44); MEAN CORPUSCULAR HEMOGLOBIN 31.8 pg (27.5-34.5); MEAN CORPUSCULAR HGB CONC 33.7 g/dL (33.2-36.2); MEAN PLATELET VOLUME 9.3 fL (7.4-10.4); MONOCYTES % (AUTO) 7 % (2-9); NEUTROPHILS % (AUTO) 76 % (42-75); PLATELET COUNT 271 x10^3/uL (130-400); RED BLOOD COUNT 4.58 x10^6/uL (4.38-5.82); RED CELL DISTRIBUTION WIDTH 14.6 % (9.4-14.8)
[2020-05-04] MEDS: FUROSEMIDE 40 MG/4 ML IV SCH (09:43)
[2020-05-04 09:46] LABS: MD NO
[2020-05-04] MEDS: ENOXAPARIN 40 MG/0.4 ML SQ SCH (11:04)
[2020-05-04 13:47] VITALS: BP 108/67
[2020-05-04 18:40] VITALS: BP 131/79
[2020-05-04] MEDS: MELATONIN 5 MG TABLET PO SCH (20:07)
[2020-05-05 00:35] VITALS: BP 113/70
[2020-05-05 05:04] LABS: BASOPHILS % (AUTO) 1 % (0-1); EOSINOPHILS % (AUTO) 3 % (1-7); LYMPHOCYTES % (AUTO) 17 % (22-44); MEAN CORPUSCULAR HGB CONC 33.7 g/dL (33.2-36.2); MEAN PLATELET VOLUME 8.4 fL (7.4-10.4); MONOCYTES % (AUTO) 9 % (2-9); NEUTROPHILS % (AUTO) 71 % (42-75); PLATELET COUNT 253 x10^3/uL (130-400); RED BLOOD COUNT 4.21 x10^6/uL (4.38-5.82); RED CELL DISTRIBUTION WIDTH 14.8 % (9.4-14.8)
[2020-05-05 05:06] LABS: MD NO
[2020-05-05 05:14] LABS: ANION GAP 2 mmol/L (5-15); CALCIUM 8.6 mg/dL (8.5-10.1); CHLORIDE 106 mmol/L (98-107); CREATININE 0.87 mg/dL (0.7-1.3)
[2020-05-05 07:28] VITALS: BP 115/63
[2020-05-05] MEDS: ZINC SULFATE 220 MG CAPSULE PO SCH (08:16)
[2020-05-05] MEDS: THIAMINE 100MG TABLET PO SCH (08:16)
[2020-05-05] MEDS: FUROSEMIDE 20 MG TABLET PO SCH (08:16)
[2020-05-05] MEDS: MAGNESIUM HYDROXIDE 8%, 30ML UDC PO SCH ×2 (08:16→21:31)
[2020-05-05] MEDS: ASCORBIC ACID 500 MG TABLET PO SCH ×2 (08:16→16:34)
[2020-05-05] MEDS: CHOLECALCIFEROL 5,000u TAB PO SCH (08:16)
[2020-05-05] MEDS: FLUTICASONE/VILANTEROL 100-25MCG/INH INH SCH (08:19)
[2020-05-05] MEDS: SODIUM CHLORIDE FLUSH 10ML SYR IVF SCH ×2 (08:19→21:31)
[2020-05-05] MEDS: INSULIN LISPRO 100 UNITS/ML, PEN SQ-INSULIN SCH ×4 (08:30→21:31)
[2020-05-05] MEDS: INSULIN GLARGINE 100 UNITS/ML, PEN SQ-INSULIN SCH ×2 (09:38→21:30)
[2020-05-05] MEDS: ENOXAPARIN 40 MG/0.4 ML SQ SCH (11:45)
[2020-05-05 12:36] VITALS: BP 107/63
[2020-05-05 20:00] VITALS: BP 113/61
[2020-05-05] MEDS: MELATONIN 5 MG TABLET PO SCH (21:32)
[2020-05-06 01:20] VITALS: BP 110/63
[2020-05-06 06:36] VITALS: BP 114/61
[2020-05-06 06:39] LABS: BASOPHILS % (AUTO) 0 % (0-1); EOSINOPHILS % (AUTO) 2 % (1-7); LYMPHOCYTES % (AUTO) 21 % (22-44); MONOCYTES % (AUTO) 9 % (2-9); NEUTROPHILS % (AUTO) 68 % (42-75); PLATELET COUNT 200 x10^3/uL (130-400); RED BLOOD COUNT 4.59 x10^6/uL (4.38-5.82); RED CELL DISTRIBUTION WIDTH 14.9 % (9.4-14.8)
[2020-05-06 06:49] LABS: CHLORIDE 108 mmol/L (98-107)
[2020-05-06 06:55] LABS: ALANINE AMINOTRANSFERASE 40 U/L (12-78); ALBUMIN 2.2 g/dL (3.4-5.0); ALKALINE PHOSPHATASE 82 U/L (45-117); ANION GAP 5 mmol/L (5-15); BILIRUBIN,TOTAL 0.8 mg/dL (0.2-1.0); CALCIUM 8.6 mg/dL (8.5-10.1); CREATININE 0.85 mg/dL (0.7-1.3)
[2020-05-06] MEDS: INSULIN LISPRO 100 UNITS/ML, PEN SQ-INSULIN SCH ×4 (07:00→21:00)
[2020-05-06 07:43] LABS: MD SCAN
[2020-05-06] MEDS: FLUTICASONE/VILANTEROL 100-25MCG/INH INH SCH (08:33)
[2020-05-06] MEDS: SODIUM CHLORIDE FLUSH 10ML SYR IVF SCH ×2 (09:00→21:03)
[2020-05-06] MEDS: ASCORBIC ACID 500 MG TABLET PO SCH ×2 (09:59→17:11)
[2020-05-06] MEDS: MAGNESIUM HYDROXIDE 8%, 30ML UDC PO SCH ×2 (09:59→20:55)
[2020-05-06] MEDS: ZINC SULFATE 220 MG CAPSULE PO SCH (10:00)
[2020-05-06] MEDS: FUROSEMIDE 20 MG TABLET PO SCH (10:00)
[2020-05-06] MEDS: THIAMINE 100MG TABLET PO SCH (10:00)
[2020-05-06] MEDS: ENOXAPARIN 40 MG/0.4 ML SQ SCH (10:01)
[2020-05-06] MEDS: INSULIN GLARGINE 100 UNITS/ML, PEN SQ-INSULIN SCH ×2 (10:01→21:03)
[2020-05-06] MEDS: CHOLECALCIFEROL 5,000u TAB PO SCH (10:01)
[2020-05-06 12:39] VITALS: BP 137/72
[2020-05-06 19:47] VITALS: BP 124/72
[2020-05-06] MEDS: MELATONIN 5 MG TABLET PO SCH (21:03)
[2020-05-07 01:23] VITALS: BP 124/77
[2020-05-07 04:37] LABS: ANION GAP 3 mmol/L (5-15); CALCIUM 8.8 mg/dL (8.5-10.1); CHLORIDE 111 mmol/L (98-107); CREATININE 0.83 mg/dL (0.7-1.3)
[2020-05-07] MEDS: INSULIN LISPRO 100 UNITS/ML, PEN SQ-INSULIN SCH ×4 (07:00→21:19)
[2020-05-07] MEDS: ASCORBIC ACID 500 MG TABLET PO SCH ×2 (08:00→17:05)
[2020-05-07] MEDS: INSULIN GLARGINE 100 UNITS/ML, PEN SQ-INSULIN SCH ×2 (08:41→21:20)
[2020-05-07] MEDS: FLUTICASONE/VILANTEROL 100-25MCG/INH INH SCH (08:41)
[2020-05-07 08:49] VITALS: BP 114/70
[2020-05-07] MEDS ORDERED: INSULIN GLARGINE 100 UNITS/ML, PEN SQ-INSULIN SCH (09:00)
[2020-05-07] MEDS: SODIUM CHLORIDE FLUSH 10ML SYR IVF SCH ×2 (09:00→21:16)
[2020-05-07] MEDS: ENOXAPARIN 40 MG/0.4 ML SQ SCH (11:00)
[2020-05-07] MEDS: ZINC SULFATE 220 MG CAPSULE PO SCH (12:29)
[2020-05-07] MEDS: CHOLECALCIFEROL 5,000u TAB PO SCH (12:30)
[2020-05-07] MEDS: FUROSEMIDE 20 MG TABLET PO SCH (12:30)
[2020-05-07] MEDS: THIAMINE 100MG TABLET PO SCH (12:30)
[2020-05-07] MEDS: MAGNESIUM HYDROXIDE 8%, 30ML UDC PO SCH ×2 (12:30→21:16)
[2020-05-07 13:06] VITALS: BP 133/80
[2020-05-07 19:07] VITALS: BP 119/71
[2020-05-07] MEDS: MELATONIN 5 MG TABLET PO SCH (21:16)
[2020-05-08 00:30] VITALS: BP 134/79
[2020-05-08 05:33] LABS: CREATININE 0.85 mg/dL (0.7-1.3)
[2020-05-08] MEDS: INSULIN LISPRO 100 UNITS/ML, PEN SQ-INSULIN SCH ×4 (07:00→21:36)
[2020-05-08 08:40] VITALS: BP 118/75
[2020-05-08] MEDS: MAGNESIUM HYDROXIDE 8%, 30ML UDC PO SCH ×2 (08:44→21:31)
[2020-05-08] MEDS: FLUTICASONE/VILANTEROL 100-25MCG/INH INH SCH (08:46)
[2020-05-08] MEDS: ASCORBIC ACID 500 MG TABLET PO SCH ×2 (08:47→17:25)
[2020-05-08] MEDS: CHOLECALCIFEROL 5,000u TAB PO SCH (08:47)
[2020-05-08] MEDS: FUROSEMIDE 20 MG TABLET PO SCH (08:47)
[2020-05-08] MEDS: SODIUM CHLORIDE FLUSH 10ML SYR IVF SCH ×2 (08:47→21:31)
[2020-05-08] MEDS: ZINC SULFATE 220 MG CAPSULE PO SCH (08:47)
[2020-05-08] MEDS: INSULIN GLARGINE 100 UNITS/ML, PEN SQ-INSULIN SCH ×2 (08:50→21:37)
[2020-05-08] MEDS: THIAMINE 100MG TABLET PO SCH (08:50)
[2020-05-08] MEDS: ENOXAPARIN 40 MG/0.4 ML SQ SCH (08:50)
[2020-05-08] MEDS: DIPHENHYDRAMINE 25 MG CAPSULE PO ONE ×2 (09:00→17:25)
[2020-05-08 12:38] VITALS: BP 120/76
[2020-05-08] MEDS ORDERED: LORATADINE 10 MG TABLET PO ONE (13:00)
[2020-05-08] MEDS ORDERED: DIPHENHYDRAMINE 25 MG CAPSULE PO ONE (17:30)
[2020-05-08 18:59] VITALS: BP 130/76
[2020-05-08] MEDS: MELATONIN 5 MG TABLET PO SCH (21:31)
[2020-05-09 00:55] VITALS: BP 119/75
[2020-05-09] MEDS: INSULIN LISPRO 100 UNITS/ML, PEN SQ-INSULIN SCH ×4 (07:18→22:04)
[2020-05-09] MEDS: ASCORBIC ACID 500 MG TABLET PO SCH (07:18)
[2020-05-09 08:17] VITALS: BP 115/65
[2020-05-09] MEDS: THIAMINE 100MG TABLET PO SCH (08:20)
[2020-05-09] MEDS: MAGNESIUM HYDROXIDE 8%, 30ML UDC PO SCH (08:20)
[2020-05-09] MEDS: SODIUM CHLORIDE FLUSH 10ML SYR IVF SCH ×2 (08:21→21:06)
[2020-05-09] MEDS: INSULIN GLARGINE 100 UNITS/ML, PEN SQ-INSULIN SCH ×2 (08:23→22:04)
[2020-05-09] MEDS: FLUTICASONE/VILANTEROL 100-25MCG/INH INH SCH (09:39)
[2020-05-09] MEDS: ENOXAPARIN 40 MG/0.4 ML SQ SCH (11:00)
[2020-05-09 13:09] VITALS: BP 116/64
[2020-05-09 19:43] VITALS: BP 130/75
[2020-05-09] MEDS: MELATONIN 5 MG TABLET PO SCH (21:06)
[2020-05-10 00:37] VITALS: BP 116/70
[2020-05-10 07:44] VITALS: BP 132/72
[2020-05-10] MEDS: INSULIN LISPRO 100 UNITS/ML, PEN SQ-INSULIN SCH ×2 (08:39→12:57)
[2020-05-10] MEDS: INSULIN GLARGINE 100 UNITS/ML, PEN SQ-INSULIN SCH ×2 (08:40→20:28)
[2020-05-10] MEDS: FLUTICASONE/VILANTEROL 100-25MCG/INH INH SCH (08:41)
[2020-05-10] MEDS: ENOXAPARIN 40 MG/0.4 ML SQ SCH (13:13)
[2020-05-10 13:14] VITALS: BP 128/78
[2020-05-10] MEDS: SODIUM CHLORIDE FLUSH 10ML SYR IVF SCH ×2 (16:54→20:28)
[2020-05-10] MEDS: metFORMIN XR 500 MG TAB.ER.24H PO SCH (16:54)
[2020-05-10] MEDS: MELATONIN 5 MG TABLET PO SCH (20:27)
[2020-05-10 20:51] VITALS: BP 125/76
[2020-05-11 02:10] VITALS: BP 132/79
[2020-05-11 07:02] LABS: CREATININE 0.91 mg/dL (0.7-1.3)
[2020-05-11 07:09] VITALS: BP 134/82
[2020-05-11] MEDS: INSULIN GLARGINE 100 UNITS/ML, PEN SQ-INSULIN SCH (08:31)
[2020-05-11] MEDS: SODIUM CHLORIDE FLUSH 10ML SYR IVF SCH ×2 (08:32→21:11)
[2020-05-11] MEDS: FLUTICASONE/VILANTEROL 100-25MCG/INH INH SCH (08:32)
[2020-05-11] MEDS: ENOXAPARIN 40 MG/0.4 ML SQ SCH (12:13)
[2020-05-11] MEDS: metFORMIN XR 500 MG TAB.ER.24H PO SCH (14:03)
[2020-05-11 14:12] VITALS: BP 114/70
[2020-05-11 20:28] VITALS: BP 131/77
[2020-05-11] MEDS: MELATONIN 5 MG TABLET PO SCH (21:00)
[2020-05-12 02:00] VITALS: BP 122/80
[2020-05-12 07:10] VITALS: BP 123/72
[2020-05-12] MEDS: metFORMIN XR 500 MG TAB.ER.24H PO SCH ×2 (08:18→20:22)
[2020-05-12] MEDS: GLIMEPIRIDE 1 MG TABLET PO SCH (08:18)
[2020-05-12] MEDS: FLUTICASONE/VILANTEROL 100-25MCG/INH INH SCH (08:19)
[2020-05-12] MEDS: SODIUM CHLORIDE FLUSH 10ML SYR IVF SCH ×2 (08:19→20:22)
[2020-05-12 08:22] LABS: ANION GAP 2 mmol/L (5-15); CALCIUM 9.2 mg/dL (8.5-10.1); CHLORIDE 110 mmol/L (98-107); CREATININE 1.01 mg/dL (0.7-1.3)
[2020-05-12] MEDS: ENOXAPARIN 40 MG/0.4 ML SQ SCH (11:00)
[2020-05-12 12:02] LABS: BASOPHILS % (AUTO) 1 % (0-1); EOSINOPHILS % (AUTO) 2 % (1-7); LYMPHOCYTES % (AUTO) 18 % (22-44); MEAN CORPUSCULAR HEMOGLOBIN 31.9 pg (27.5-34.5); MEAN CORPUSCULAR HGB CONC 33.2 g/dL (33.2-36.2); MEAN PLATELET VOLUME 8.6 fL (7.4-10.4); MONOCYTES % (AUTO) 8 % (2-9); NEUTROPHILS % (AUTO) 72 % (42-75); PLATELET COUNT 433 x10^3/uL (130-400); RED BLOOD COUNT 4.18 x10^6/uL (4.38-5.82); RED CELL DISTRIBUTION WIDTH 14.8 % (9.4-14.8)
[2020-05-12 12:06] LABS: MD NO
[2020-05-12 12:43] LABS: ALANINE AMINOTRANSFERASE 59 U/L (12-78); ALBUMIN 2.4 g/dL (3.4-5.0); ANION GAP 5 mmol/L (5-15); CALCIUM 9.1 mg/dL (8.5-10.1); CHLORIDE 112 mmol/L (98-107); CREATININE 1.04 mg/dL (0.7-1.3)
[2020-05-12 12:45] LABS: ALKALINE PHOSPHATASE 92 U/L (45-117); BILIRUBIN,TOTAL 0.3 mg/dL (0.2-1.0); TOTAL PROTEIN 6.7 g/dL (6.4-8.2)
[2020-05-12 15:19] VITALS: BP 121/75
[2020-05-12] MEDS: LEVOFLOXACIN 750 MG TABLET PO SCH (18:35)
[2020-05-12 20:11] VITALS: BP 125/69
[2020-05-13 01:12] VITALS: BP 132/83
[2020-05-13 07:19] VITALS: BP 114/60
[2020-05-13] MEDS: LEVOFLOXACIN 750 MG TABLET PO SCH (07:36)
[2020-05-13] MEDS: metFORMIN XR 500 MG TAB.ER.24H PO SCH ×2 (07:36→20:11)
[2020-05-13] MEDS: SODIUM CHLORIDE FLUSH 10ML SYR IVF SCH ×2 (07:37→20:12)
[2020-05-13] MEDS: GLIMEPIRIDE 1 MG TABLET PO SCH (07:37)
[2020-05-13] MEDS: FLUTICASONE/VILANTEROL 100-25MCG/INH INH SCH (07:37)
[2020-05-13 07:51] LABS: BASOPHILS % (AUTO) 1 % (0-1); EOSINOPHILS % (AUTO) 2 % (1-7); LYMPHOCYTES % (AUTO) 14 % (22-44); MEAN CORPUSCULAR HEMOGLOBIN 31.6 pg (27.5-34.5); MEAN CORPUSCULAR HGB CONC 33.2 g/dL (33.2-36.2); MEAN PLATELET VOLUME 7.7 fL (7.4-10.4); MONOCYTES % (AUTO) 6 % (2-9); NEUTROPHILS % (AUTO) 78 % (42-75); PLATELET COUNT 389 x10^3/uL (130-400); RED BLOOD COUNT 4.09 x10^6/uL (4.38-5.82); RED CELL DISTRIBUTION WIDTH 14.5 % (9.4-14.8)
[2020-05-13 07:59] LABS: CALCIUM 9.1 mg/dL (8.5-10.1); CHLORIDE 111 mmol/L (98-107)
[2020-05-13 08:15] LABS: ALANINE AMINOTRANSFERASE 58 U/L (12-78); ALBUMIN 2.3 g/dL (3.4-5.0); ALKALINE PHOSPHATASE 92 U/L (45-117); ANION GAP 7 mmol/L (5-15); BILIRUBIN,TOTAL 0.3 mg/dL (0.2-1.0); TOTAL PROTEIN 6.3 g/dL (6.4-8.2)
[2020-05-13 08:19] LABS: MD SCAN
[2020-05-13] MEDS: ENOXAPARIN 40 MG/0.4 ML SQ SCH (11:00)
[2020-05-13 12:11] VITALS: BP 98/62
[2020-05-13 19:44] VITALS: BP 116/69
[2020-05-14 01:40] VITALS: BP 125/68
[2020-05-14 06:13] LABS: BASOPHILS % (AUTO) 1 % (0-1); EOSINOPHILS % (AUTO) 2 % (1-7); LYMPHOCYTES % (AUTO) 14 % (22-44); MEAN CORPUSCULAR HEMOGLOBIN 31.6 pg (27.5-34.5); MEAN CORPUSCULAR HGB CONC 33.2 g/dL (33.2-36.2); MEAN PLATELET VOLUME 8.6 fL (7.4-10.4); MONOCYTES % (AUTO) 6 % (2-9); NEUTROPHILS % (AUTO) 77 % (42-75); PLATELET COUNT 372 x10^3/uL (130-400); RED BLOOD COUNT 3.82 x10^6/uL (4.38-5.82); RED CELL DISTRIBUTION WIDTH 14.7 % (9.4-14.8)
[2020-05-14 06:22] LABS: ANION GAP 5 mmol/L (5-15); CALCIUM 8.8 mg/dL (8.5-10.1); CHLORIDE 109 mmol/L (98-107); CREATININE 1.04 mg/dL (0.7-1.3)
[2020-05-14 06:36] LABS: MD NO
[2020-05-14 06:47] VITALS: BP 121/72
[2020-05-14] MEDS: FLUTICASONE/VILANTEROL 100-25MCG/INH INH SCH (08:56)
[2020-05-14] MEDS: metFORMIN XR 500 MG TAB.ER.24H PO SCH ×2 (08:57→20:56)
[2020-05-14] MEDS: SODIUM CHLORIDE FLUSH 10ML SYR IVF SCH ×2 (08:57→20:56)
[2020-05-14] MEDS: LEVOFLOXACIN 750 MG TABLET PO SCH (08:57)
[2020-05-14] MEDS: GLIMEPIRIDE 4 MG TABLET PO SCH (08:57)
[2020-05-14] MEDS: ENOXAPARIN 40 MG/0.4 ML SQ SCH (10:44)
[2020-05-14 12:10] VITALS: BP 123/65
[2020-05-14 19:16] VITALS: BP 120/67
[2020-05-15 00:47] VITALS: BP 120/72
[2020-05-15 07:12] VITALS: BP 120/68
[2020-05-15] MEDS: SODIUM CHLORIDE FLUSH 10ML SYR IVF SCH ×2 (08:10→21:23)
[2020-05-15] MEDS: GLIMEPIRIDE 4 MG TABLET PO SCH (08:10)
[2020-05-15] MEDS: FLUTICASONE/VILANTEROL 100-25MCG/INH INH SCH (08:10)
[2020-05-15] MEDS: LEVOFLOXACIN 750 MG TABLET PO SCH (08:10)
[2020-05-15] MEDS: metFORMIN XR 500 MG TAB.ER.24H PO SCH ×2 (08:10→21:23)
[2020-05-15] MEDS: ENOXAPARIN 40 MG/0.4 ML SQ SCH (11:00)
[2020-05-15 11:38] VITALS: BP 124/68
[2020-05-15 19:31] VITALS: BP 120/72
[2020-05-16 01:10] VITALS: BP 119/73
[2020-05-16 06:23] VITALS: BP 113/66
[2020-05-16] MEDS: metFORMIN XR 500 MG TAB.ER.24H PO SCH (07:22)
[2020-05-16] MEDS: GLIMEPIRIDE 4 MG TABLET PO SCH (07:22)
[2020-05-16] MEDS: LEVOFLOXACIN 750 MG TABLET PO SCH (07:22)
[2020-05-16] MEDS: FLUTICASONE/VILANTEROL 100-25MCG/INH INH SCH (07:23)
[2020-05-16] MEDS: SODIUM CHLORIDE FLUSH 10ML SYR IVF SCH (07:23)
[2020-05-16] MEDS ORDERED: METF500T3 PO (09:07)
[2020-05-16] MEDS ORDERED: GLIM4TAB PO (09:07)
[2020-05-16] MEDS: ENOXAPARIN 40 MG/0.4 ML SQ SCH (10:54)
[2020-05-16 14:21] VITALS: BP 113/67
== END 2020-05-16 17:10 | disposition home health service (06) | DRG 871 ==
LOC: ED 04-02 00:40 → EDIP 04-02 03:06 → 4EST 04-02 03:08 → 3N 04-05 02:36 → 4EST 05-09 18:00
PROVIDERS: ADMIT Family Medicine; ATTEND Internal Medicine
PROC: XW033E5 Introduction of Remdesivir Anti-infective into Peripheral Vein, Percutaneous Approach, New Technology Group 5 (ICD-10-PCS; principal; 2020-05-08)
DX: A41.89 Other specified sepsis (principal); U07.1 COVID-19; J96.21 Acute and chronic respiratory failure with hypoxia; J12.82 Pneumonia due to coronavirus disease 2019; I50.33 Acute on chronic diastolic (congestive) heart failure; J44.0 Chronic obstructive pulmonary disease with (acute) lower respiratory infection; I69.354 Hemiplegia and hemiparesis following cerebral infarction affecting left non-dominant side; D63.8 Anemia in other chronic diseases classified elsewhere; E11.65 Type 2 diabetes mellitus with hyperglycemia; E78.5 Hyperlipidemia, unspecified; E87.6 Hypokalemia; G31.84 Mild cognitive impairment of uncertain or unknown etiology; H54.7 Unspecified visual loss; G47.33 Obstructive sleep apnea (adult) (pediatric); L50.9 Urticaria, unspecified; I11.0 Hypertensive heart disease with heart failure; M81.0 Age-related osteoporosis without current pathological fracture; N40.0 Benign prostatic hyperplasia without lower urinary tract symptoms; Z96.642 Presence of left artificial hip joint; R65.20 Severe sepsis without septic shock; Z20.828 Contact with and (suspected) exposure to other viral communicable diseases; Z66 Do not resuscitate; Z79.2 Long term (current) use of antibiotics; Z79.84 Long term (current) use of oral hypoglycemic drugs; Z80.0 Family history of malignant neoplasm of digestive organs; Z80.3 Family history of malignant neoplasm of breast; Z83.3 Family history of diabetes mellitus; Z87.891 Personal history of nicotine dependence; Z91.19 Patient's noncompliance with other medical treatment and regimen; Z99.3 Dependence on wheelchair; Z79.899 Other long term (current) drug therapy; Z88.2 Allergy status to sulfonamides
CPT/HCPCS: 36415; 71045; 80048; 80053; 80069; 81001; 82565; 82947; 82962; 83036; 83605; 83615; 83735; 83880; 84100; 84145; 84484; 85025; 85379; 85384; 85651; 86140; 87040; 87635; 93005; 93306; 96365; 99291; G0378; J0295; J0456; J0696; J1100; J1650; J1940; J1815; J2930; J7030; J7050; J7512; Q0163; U0003